=== PATIENT | male | born 1955 | race Caucasian/White ===

== ENCOUNTER 2016-09-19 11:27 | Inpatient (IN) ==
[~2016-09-19 11:27] MED LIST: *HR* Amiodarone 150 MG/3 ML VIAL IVPB ONE; *HR* Amiodarone Premix 360 MG/200 ML BAG IVC ONE
[2016-09-19] MEDS ORDERED: *HR* FentaNYL (PF) 100 MCG/2 ML VIAL ONE (12:00)
[2016-09-19] MEDS ORDERED: *HR* Midazolam HCl 2 MG/2 ML VIAL ONE (12:00)
[2016-09-19] MEDS ORDERED: 0.9 % Sodium Chloride 1,000 ML ONE (12:01)
[2016-09-19] MEDS ORDERED: 0.9 % Sodium Chloride 1,000 ML IVC ONE (12:15)
[2016-09-19] MEDS ORDERED: Amiodarone 150 MG in D5% in Water 100 ML IVPB ONE (12:20)
--- NOTE | 2016-09-19 12:20 | Emergency Department Note ---
Disposition Clinical Impression: Ventricular tachycardia Disposition: Admitted As Inpatient Condition: Serious Referrals: Lavern Iverson CNP [Primary Care Provider] - Forms: ED Satisfaction Letter Time of Disposition: 12:46 Arrhythmia/Palpitations HPI - General Chief Complaint: ED Arrhythmia/Palpitations Stated Complaint: "dizziness", sent from Cardiology Time Seen by Provider: 09/19/16 11:49 Source: patient Limitations: no limitations Nursing Notes Reviewed: Yes Vital Signs Reviewed: Yes - History of Present Illness HPI Narrative: 61-year-old male with history of coronary disease who currently has a pacemaker and defibrillator 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 Patient was seen to have his pacemaker interrogated and was found per cardiology report to have a run of ventricular fibrillation. He was also noted to have several runs of tachycardia. They decided to send him to the emergency department for evaluation. On arrival the patient is pale, diaphoretic and cyanotic. He was noted to have a wide-complex tachycardia on monitor. EKG confirmed wide-complex tachycardia that appeared to be ventricular tachycardia. The alert team was notified and a crash cart was moved into the room. Pacer pads were applied to the right chest and left chest wall. Initial blood pressure was 124/100. His initial heart rate was 190 bpm. O2 saturation was 92% on room air. Patient was given 5 mg of Versed and 100 g of fentanyl. He was synchronized cardioverted with 125 J which failed. Patient immediately converted back into ventricular tachycardia. The patient's blood pressure then decreased to 63/40. Patient was immediately converted at 150 J and had a sustained sinus rhythm at 74 bpm. Initial blood pressure afterward was 130/88. Repeat EKG ordered. Amiodarone at 150 mg began. After discussion with cardiology, Dr. Arreola, he recommend starting amiodarone drip at 1 mg per hour. The patient is currently recovering from his sedation. Cardiology has already seen and evaluated the patient by Dr. Jagjit Murphy. They have recommended admission to the hospitalist service with cardiology to evaluate once the patient reaches the floor. Pt Subjective Complaint: palpitations Onset (ago): week(s) (1) Duration: constant Severity: moderate Arrhythmia History: atrial fibrillation, pacemaker, AICD Associated symptoms: Reports: near-syncope, diaphoresis - Related Data Allergies Allergy/AdvReac Type Severity Reaction Status Date / Time Penicillins Allergy See Verified 08/03/15 10:01 Comments All systems ED: reviewed and negative except as stated. Constitutional: Denies: fever, chills Cardiovascular: Reports: palpitations. Denies: chest pain Respiratory: Denies: cough, dyspnea, wheezes Gastrointestinal: Denies: abdominal pain, nausea, vomiting Musculoskeletal: Denies: back pain Neurological: Reports: weakness, vertigo. Denies: headache Past Medical History - Past Medical History Medical history: Reports: non-contributory - Social History Smoking Status: Unknown if ever smoked Alcohol use: Reports: unknown Drug use: Reports: unknown Physical Exam - General Limitations: no limitations General appearance: alert, in distress - Head Head exam: atraumatic, normocephalic, normal inspection, other (Diaphoresis) - ENT ENT exam: other (Tobias cyanosis) - Chest Chest inspection: Present: normal inspection, symmetric chest wall rise - Respiratory Respiratory exam: Present: normal lung sounds bilaterally - Cardiovascular Cardiovascular exam: Present: normal rhythm, tachycardia - Abdominal Exam Abdominal exam: Present: soft, Non-Tender. Absent: tenderness, distention, guarding, rebound, rigidity - Neurological Exam Neurological exam: Present: alert, oriented X3, CN II-XII intact - Skin Skin exam: Present: warm, dry, intact, normal color Course - Reevaluation(s) Reevaluation #1: Discussed case with cardiology, Dr. Arreola and Dr. Velasquez. They feel the patient should be admitted by the hospitalist service. They recommended placing the patient on an amnio drip at 1 mg per hour. Patient's blood pressure now is currently 110/57. Heart rate is 68 bpm. O2 saturations 100%. Discussed case with hospitalist service who feels the patient is not suitable for admission to the floor. They recommend discussion with the med asst. Residential Concierge has been paged. Awaiting callback. Time: 12:50 Reevaluation #2: Discussed case with the med asst Dr. Gibbons. He is accepted the patient for further evaluation and treatment. He did recommend replacing potassium. Patient in stable but guarded condition. Time: 13:12 Vital Signs Temperature 98.3 F 09/19/16 11:59 Pulse Rate 203 09/19/16 11:59 Respiratory Rate 18 09/19/16 11:59 Blood Pressure 124/100 09/19/16 11:59 O2 Sat by Pulse Oximetry 97 09/19/16 11:59 Temperature 98.3 F 09/19/16 11:59 Pulse Rate 69 09/19/16 12:45 Respiratory Rate 14 09/19/16 12:45 Blood Pressure 110/57 09/19/16 12:45 O2 Sat by Pulse Oximetry 100 09/19/16 12:45 Oxygen Delivery Oxygen Delivery Non Rebreather Mask Arrhythmia/Palpitations - Medical Records Medical records reviewed: Yes I reviewed the patient's medical records. - Lab Data Lab results reviewed: Yes I reviewed the patient's lab results. Result diagrams: 09/19/16 12:37 09/19/16 12:37 Lab Results 09/19/16 09/19/16 09/19/16 Range/Units 12:37 12:37 12:37 WBC 9.3 (4.3-11.1) K/mcL RBC 4.52 (4.19-5.50) M/mcL Hgb 13.1 (12.9-16.9) g/dL Hct 40.0 (37.5-50.1) % MCV 88.5 (83.0-100.0) fL MCH 29.0 (28.0-33.3) pg MCHC 32.8 (31.6-35.5) g/dL RDW 14.1 (11.5-14.5) % Plt Count 219 (140-400) K/mcL MPV 9.9 (9.4-12.4) fL Immature Gran % 0.2 (0-4) % Seg Neutrophils % 67.9 % Lymphocytes % 21.2 % Monocytes % 9.7 % Eosinophils % 0.6 % Basophils % 0.4 % Neutrophils # 6.3 (1.6-8.9) K/mcL Lymphocytes # 2.0 (0.6-4.6) K/mcL Monocytes # 0.9 (0.0-1.3) K/mcL Eosinophils # 0.1 (0.0-0.6) K/mcL Basophils # 0.0 (0.0-0.2) K/mcL Immature Plt Fraction 2.8 (1.1-6.1) % PT 12.2 H (9.4-12.1) Seconds INR 1.1 Sodium 141 (136-145) mEq/L Potassium 3.2 L (3.5-4.5) mEq/L Chloride 105 (98-109) mEq/L Carbon Dioxide 24 (19-29) mEq/L BUN 17 (8-26) mg/dL Creatinine 1.49 H (0.72-1.25) mg/dL Est GFR ( Amer) 58 L (> 60) Est GFR (Non-Af Amer) 48 L (> 60) BUN/Creatinine Ratio 11 (6-26) Glucose 187 H (70-99) mg/dL Calculated Osmolality 298 (280-300) Calcium 9.1 (8.6-10.8) mg/dL Total Bilirubin 0.5 (0.2-1.2) mg/dL AST 19 (5-34) Units/L ALT 22 (0-55) Units/L Alkaline Phosphatase 76 (38-126) Units/L Troponin I (0-0.03) ng/mL Serum Total Protein 6.4 (6.0-8.3) g/dL Albumin 3.3 L (3.5-5.0) g/dL Globulin 3.1 (2.4-3.5) g/dL Albumin/Globulin Ratio 1.1 (1.1-2.2) 09/19/16 Range/Units 12:37 WBC (4.3-11.1) K/mcL RBC (4.19-5.50) M/mcL Hgb (12.9-16.9) g/dL Hct (37.5-50.1) % MCV (83.0-100.0) fL MCH (28.0-33.3) pg MCHC (31.6-35.5) g/dL RDW (11.5-14.5) % Plt Count (140-400) K/mcL MPV (9.4-12.4) fL Immature Gran % (0-4) % Seg Neutrophils % % Lymphocytes % % Monocytes % % Eosinophils % % Basophils % % Neutrophils # (1.6-8.9) K/mcL Lymphocytes # (0.6-4.6) K/mcL Monocytes # (0.0-1.3) K/mcL Eosinophils # (0.0-0.6) K/mcL Basophils # (0.0-0.2) K/mcL Immature Plt Fraction (1.1-6.1) % PT (9.4-12.1) Seconds INR Sodium (136-145) mEq/L Potassium (3.5-4.5) mEq/L Chloride (98-109) mEq/L Carbon Dioxide (19-29) mEq/L BUN (8-26) mg/dL Creatinine (0.72-1.25) mg/dL Est GFR ( Amer) (> 60) Est GFR (Non-Af Amer) (> 60) BUN/Creatinine Ratio (6-26) Glucose (70-99) mg/dL Calculated Osmolality (280-300) Calcium (8.6-10.8) mg/dL Total Bilirubin (0.2-1.2) mg/dL AST (5-34) Units/L ALT (0-55) Units/L Alkaline Phosphatase (38-126) Units/L Troponin I 0.18 H* (0-0.03) ng/mL Serum Total Protein (6.0-8.3) g/dL Albumin (3.5-5.0) g/dL Globulin (2.4-3.5) g/dL Albumin/Globulin Ratio (1.1-2.2) - Radiology Data Radiology results reviewed: Yes I reviewed the patient's radiology results. - EKG Data EKG attestation: Yes I reviewed and interpreted this EKG. EKG results narrative: Ventricular tachycardia with a rate of 179 bpm Rate: tachycardia When compared to previous EKG there are: changes noted
--- NOTE | 2016-09-19 12:22 | Cardiology Consult Note ---
Addendum entered and electronically signed by Jagjit Murphy DO 09/19/16 13:21: 1st troponin is back and is elevated at 0.18, likely related to his cardioversion. Continue to trend. No acute intervention at this time. Original Note: Date of Encounter: 09/19/16 Time of Encounter: 12:22 Assessment and Plan (1) Ventricular tachycardia Status: Acute - Remote history of inducible V-tach, had ICD placed and started on Sotalol, patient quit taking Sotalol several months ago - At device clinic today and noted to be in V-tach, sent to the ED for further Eval - In ED, patient hemodynamically stable but c/o near syncope x2-3 days and looked unwell - 1st attempt at cardioversion failed, 2nd attempt after Amiodarone bolus converted to NSR - Maintain Amiodarone gtt at 1mg/min for 24 hours - Order complete echocardiogram - Further recommendations pending lab and echo results - Possible stress test vs LHC tomorrow pending results - Continue all symptomatic care - Continue home medications if BP remains stable - Will be admitted to medicine service for other medical care - Further recommendations pending attending evaluation Discussion w patient/family: The assessment and plan as outlined above was discussed with the patient and/or family members who expressed understanding and agreement. All questions were answered. Thank you for involving us in the care of your patient. Please call with any questions. History of Present Illness Consult date: 09/19/16 Requesting physician: Denton Zaidi Consult reason: V-tach Chief complaint: dizziness History of present illness: Mr. Jordan is a 61 year old male who presents to the ED from the pacemaker clinic today. He is a patient of Dr. Velasquez and has been having a 2-3 day history of dizziness. Went to have his pacemaker interrogated today and was found to be having runs of V-tach. Was sent over to the ED for further evaluation. Once in the ED, the patient was found to be in V-tach. He was sedated and attempted cardioversion which was unsuccessful. He was bolused 150mg of Amiodarone and was cardioverted again which was successful. He did have intermittent hypotension but is recovering without other intervention. Upon my evaluation, the patient is still somewhat sedated and isn't able to answer all questions but is able to relay recent history. Reports he has been having episodes of dizziness with near syncope for the past few days. Has never had anything like this before. Denies headache, changes in vision, chest pain, shortness of breath, abd pain, edema. He is unsure of why he has the pacemaker or when it was placed. Does state he has a h/o DM and HTN but denies any other medical problems. Past Med Surg Social Fam HX - Past Medical History Medical history: arthritis, cardiomyopathy (ischemic ), CHF, coronary artery disease, CVA, diabetes, hyperlipidemia, hypertension, seizures, syncope Psychiatric history: anxiety, depression - Social History Smoking Status: Unknown if ever smoked Alcohol use: unknown Drug use: unknown Medications and Allergies Allergies Penicillins Allergy (Verified 08/03/15 10:01) See Comments does not recall reaction ROS unobtainable: other (somewhat limited since patient was recently sedated, does appear able to answer questions as expected) All Systems Review: A 10-system review of systems was performed and is negative for pertinent findings except as documented above in the HPI. - Constitutional Constitutional: fatigue, malaise, no headache(s), no weakness - EENT Eyes: no blurred vision - Cardiovascular Cardiovascular: lightheadedness, syncope (near ), no chest pain at rest, no chest pain with exertion, no diaphoresis, no dyspnea on exertion, no irregular heart rhythm, no leg edema, no palpitations - Respiratory Respiratory: no cough - Gastrointestinal Gastrointestinal: no abdominal pain, no diarrhea, no nausea - Musculoskeletal Musculoskeletal: no abnormal gait, no back pain - Integumentary Integumentary: no rash - Neurological Neurological: dizziness, syncope (near ), no abnormal speech, no focal weakness , no loss of vision, no numbness, no tingling Physical Examination Vital Signs, Last 4 Hours Temp Pulse Resp BP Pulse Ox 09/19/16 11:59 98.3 F 203 18 124/100 97 General: Conversant, No Apparent Distress (but is coming out of sedation ) HEENT: Atraumatic, Normocephaly, Mucus Membranes Moist Neck: No JVD, Normal carotid pulses Cardiac: Reg Rate and Rhythm, Normal S1 and S2, No Murmur Lungs: Normal Breath Sounds, No Wheeze, Rales, Rhonchi Neuro: Alert and responsive, No focal deficits noted, Other (slightly sedated, appropriate ) Abdomen: Soft, Non-Tender, Other (obese) Skin: No rashes noted on visualized skin Musculoskeletal: No Chest Wall Tenderness Extremities: No Clubbing, No Cyanosis, No Edema, Normal Pulses Results - Imaging and Cardiology Chest Xray: pending Consult Discharge Plan - Plan Referrals: Lavern Iverson CNP [Primary Care Provider] -
[2016-09-19] MEDS ORDERED: *HR* Midazolam HCl 5 MG/5 ML VIAL IVP ONE (12:29)
[2016-09-19] MEDS ORDERED: *HR* FentaNYL (PF) 100 MCG/2 ML VIAL IV ONE (12:29)
[2016-09-19] MEDS ORDERED: D5 IVPB SCH (12:30)
[2016-09-19] MEDS ORDERED: AMIODARONE IVPB SCH (12:30)
[2016-09-19] MEDS ORDERED: WATER IVPB SCH (12:30)
--- NOTE | 2016-09-19 12:36 | Emergency Department Note ---
START Narrative - START START: I examined this patient and my medical decision-making was reviewed with the INFORMATION TECHNOLOGY ANALYST/PA/Advanced Practice Nurse/Resident Physician. I agree with the documented findings, disposition and treatment plan as described except to the extent set forth below. ED attending note: Patient seen with emergency medicine resident Dr. Zaidi. We independently evaluated the patient. We independently had [id number] contact with the patient. Please see a copy of his note for details of the history and physical, evaluation, management and disposition of this emergency Department patient. Briefly: A 61-year-old male history of V. tach and has an AICD. Sent down from cardiology clinic with ventricular dysrhythmia and a nonfunctional AICD. Patient was shocked 3 times after IV sedation and analgesics were given. And we broke the ventricular tachycardia and is now sinus rhythm between 60 and 70 bpm. He had a transient hypotensive episode which responded to normal saline. We consulted with cardiology who will see this patient as soon as he is admitted to the hospitalist service. We have provided 55 minutes of critical care services for this patient and exclusion of other separately billable procedures such as electrical cardioversion. Patient be admitted in stable condition
[2016-09-19 12:44] LABS: Basophils % 0.4 %; Eosinophils # 0.1 K/mcL (0.0-0.6); Eosinophils % 0.6 %; Hemoglobin 13.1 g/dL (12.9-16.9); Immature Granulocytes % 0.2 % (0-4); Immature Platelets 2.8 % (1.1-6.1); Lymphocytes % 21.2 %; Mean Corpuscular HGB Conc 32.8 g/dL (31.6-35.5); Mean Corpuscular Volume 88.5 fL (83.0-100.0); Mean Platelet Volume 9.9 fL (9.4-12.4); Monocytes # 0.9 K/mcL (0.0-1.3); Monocytes % 9.7 %; Neutrophils # 6.3 K/mcL (1.6-8.9); Platelet Count 219 K/mcL (140-400); Red Blood Count 4.52 M/mcL (4.19-5.50); Red Cell Distribution Width 14.1 % (11.5-14.5); Segmented Neutrophils % 67.9 %
[2016-09-19] MEDS ORDERED: Amiodarone Premix 150 MG/100 ML BAG IVPB ONE (12:45)
[2016-09-19 12:49] LABS: INR 1.1; Prothrombin Time 12.2 Seconds (9.4-12.1)
[2016-09-19 12:58] LABS: Albumin 3.3 g/dL (3.5-5.0); Albumin/Globulin Ratio 1.1 (1.1-2.2); Bilirubin,Total 0.5 mg/dL (0.2-1.2); Calcium 9.1 mg/dL (8.6-10.8); Globulin 3.1 g/dL (2.4-3.5); Potassium 3.2 mEq/L (3.5-4.5); Total Protein 6.4 g/dL (6.0-8.3)
[2016-09-19] MEDS: Amiodarone Premix 360 MG/200 ML BAG IVC ONE ×3 (12:59→23:44)
[2016-09-19] MEDS ORDERED: *HR* Midazolam HCl 2 MG/2 ML VIAL IVP ONE (13:00)
[2016-09-19] MEDS ORDERED: Aspirin 325 MG TABLET PO ONE (13:11)
[2016-09-19 14:05] LABS: Magnesium 1.5 mg/dL (1.6-2.6)
--- NOTE | 2016-09-19 14:09 | Pulmonology History & Physical ---
Date of Encounter: 09/19/16 Time of Encounter: 14:00 Assessment and Plan (1) Ventricular tachycardia Current visit: Yes Status: Acute Pt seen in cardiology office for interrogation of pacemaker at which time runs of vfib were found along with ventricular tachycardia and he was sent to ED Found to be in V-tach in ED, was cardioverted at 125J which failed, then cardioverted at 150J with a bolus of Amiodarone and converted at that time Amiodarone at 1mg/min started Will follow cardiology recommendations Plan for Echocardiogram Possible stress test vs LHC tomorrow pending results Continue to monitor on telemetry CXR demonstrated mild cardiomegaly, otherwise no acute cardiopulmonary process (2) Diabetes mellitus Current visit: Yes Status: Acute Will hold oral medications and start SSI for hospital stay Continue to monitor glucose and make adjustments as needed Qualifiers: Diabetes mellitus type: type 2 Diabetes mellitus complication status: with unspecified complications Diabetes mellitus extermination inspector insulin use: without group home use Qualified Code(s): E11.8 - Type 2 diabetes mellitus with unspecified complications (3) DVT prophylaxis Current visit: Yes Status: Acute Therapeutic Lovenox ordered per cardiology History of Present Illness Chief complaint: Palpitations HPI: Mr. Jordan is a 61 year old male with history of coronary artery disease who has a pacemaker and defibrillator in place who presents to ED after being seen at the cardiology office. He had his pacemaker interrogated and he was sent to the ED after seeing runs of vtach on his pacemaker. He also has had symptoms of dizziness, weakness and near syncope over the past 2-3 days. He reports feeling as though he had to breath deeply in order to catch his breath and make his heart slow down. On arrival to the ED, pt was diaphoretic and felt nauseous. He was noted to have wide-complex tachycardia on monitor which was confirmed on EKG. At that time, synchronized cardioversion was performed at 125J and failed. He was then cardioverted at 150J and given Amiodarone at which time he converted to sinus rhythm. Amiodarone drip was started at 1mg/hr per cardiology. At time of interview, pt reports he is feeling much better than when he arrived. He states that he is no longer feeling dizzy or weak and the nausea has resolved. He denies having any chest pain, abdominal pain, or shortness of breath at this time. Past Med Surg Social Fam HX - Past Medical History Medical history: non-contributory Psychiatric history: anxiety, depression - Social History Smoking Status: Unknown if ever smoked Alcohol use: unknown Drug use: unknown Medications and Allergies Albuterol Sulfate [Proair Hfa] 2 puff IH Q4H PRN 09/19/16 [History] Atorvastatin [Lipitor] 40 mg PO HS 09/19/16 [History] Beclomethasone Diprop 80mcg [QVAR 80 mcg] 1 puff IH BID 09/19/16 [History] ClonazePAM [Klonopin] 1 mg PO TID PRN 09/19/16 [History] Clopidogrel [Plavix] 75 mg PO DAILY 09/19/16 [History] Ezetimibe [Zetia] 10 mg PO DAILY 09/19/16 [History] Furosemide [Lasix] 20 mg PO DAILY 09/19/16 [History] Gabapentin [Gabapentin] 800 mg PO TID 09/19/16 [History] Lamotrigine [Lamotrigine] 100 mg PO BID 09/19/16 [History] Metformin [Glucophage] 250 - 500 mg PO DAILY 09/19/16 [History] Multivitamin,Therapeutic [Therems] 1 tab PO DAILY 09/19/16 [History] Oxycodone HCl [Roxicodone 30 MG Immed Release] 30 mg PO Q4-6H PRN 09/19/16 [ History] Sertraline [Zoloft] 100 mg PO DAILY 09/19/16 [History] Allergies Penicillins Allergy (Verified 09/19/16 13:16) See Comments does not recall reaction All Systems: A 10-system review of systems was performed and is negative for pertinent findings except as documented above in the HPI. - Constitutional Constitutional: no chills, no fever(s) - EENT Eyes: no loss of vision Nose, mouth and throat: dizziness, no headache(s), no hoarseness - Cardiovascular Cardiovascular: palpitations, no chest pain, no orthopnea - Respiratory Respiratory: no cough, no dyspnea, no wheezing - Gastrointestinal Gastrointestinal: nausea, no abdominal pain, no vomiting - Genitourinary Genitourinary: no dysuria, no urinary urgency - Musculoskeletal Musculoskeletal: no back pain, no neck pain - Neurological Neurological: dizziness, weakness, no headache(s) Physical Examination Vital Signs: Vital Signs, Last 4 Hours Resp BP 09/19/16 13:51 16 104/63 General appearance: no acute distress Eyes: nonicteric ENT: oropharynx moist Neck: supple Effort: normal Auscultation: bilateral: clear Cardiovascular: regular rate and rhythm Gastrointestinal: normoactive bowel sounds, non-tender, non-distended Integumentary: normal Extremities: no cyanosis, no edema, no clubbing Musculoskeletal: no deformities normal mental status, non-focal exam mood appropriate, affect normal Results - Laboratory Findings CBC and BMP: 09/19/16 12:37 09/19/16 12:37 PT/INR, D-dimer PT 12.2 Seconds (9.4-12.1) H 09/19/16 12:37 Abnormal lab findings: Abnormal lab results PT 12.2 Seconds (9.4-12.1) H 09/19/16 12:37 Potassium 3.2 mEq/L (3.5-4.5) L 09/19/16 12:37 Creatinine 1.49 mg/dL (0.72-1.25) H 09/19/16 12:37 Est GFR ( Amer) 58 (> 60) L 09/19/16 12:37 Est GFR (Non-Af Amer) 48 (> 60) L 09/19/16 12:37 Glucose 187 mg/dL (70-99) H 09/19/16 12:37 Troponin I 0.18 ng/mL (0-0.03) H* 09/19/16 12:37 Albumin 3.3 g/dL (3.5-5.0) L 09/19/16 12:37
[2016-09-19] MEDS ORDERED: Naloxone 0.4 MG/ML INJ IVP PRN (14:20)
[2016-09-19] MEDS ORDERED: Acetaminophen 325 MG TABLET PO PRN ×2 (14:20→14:29)
[2016-09-19] MEDS ORDERED: Ondansetron 4 MG/2 ML VIAL IVP PRN (14:20)
[2016-09-19] MEDS ORDERED: D5% in Water 1,000 ML IV PRN (14:24)
[2016-09-19] MEDS ORDERED: Dextrose Gel 15 GM PO PRN ×2 (14:24)
[2016-09-19] MEDS ORDERED: *HR* Dextrose 50 % in Water (Syg) 50 ML SYRINGE IVP PRN (14:24)
[2016-09-19 14:32] LABS: Thyroid Stimulating Hormone 4.808 mcIU/mL (0.350-4.840)
[2016-09-19] MEDS: Magnesium Sulfate 2 GM in D5% in Water 100 ML IVPB SCH ×3 (15:24→16:44)
[2016-09-19] MEDS: Insulin LISPRO 300 UNITS/3 ML VIAL SQ SCH (16:36)
[2016-09-19] MEDS: *HR* Enoxaparin 120 MG/0.8 ML SYRINGE SQ SCH (17:04)
--- NOTE | 2016-09-19 17:17 | Event Note ---
Date of Encounter: 09/19/16 Time of Encounter: 17:15 Patient examined, chart and all data reviewed as well as imaging studies. I reviewed the patient's evaluation physical examination findings as outlined by the house staff. Patient was admitted through the emergency room to the intensive care unit following cardioversion from wide complex tachycardia presumably reflective of ventricular tachycardia. Currently, the patient remains in a sinus rhythm with an amiodarone infusion. Of note, electrolyte determination revealed hypokalemia hypomagnesemia also which are currently being corrected with intravenous replacement therapy. The patient has substantial risk factors for sleep apnea and apparently has been offered BiPAP treatment in the past but has declined. Cardiology is currently evaluating the patient. Aside from continuing therapy with amiodarone, the patient may undergo an ischemia evaluation (likely left heart catheterization). The patient has an uneventful evening, he may be transitioned out of the intensive care unit tomorrow. [facility] [phone]
[2016-09-19] MEDS ORDERED: Perflutren Lipid Microsphere 1.3 ML in 0.9 % Sodium Chloride 8.7 ML IVP ONE (21:09)
[2016-09-19] MEDS ORDERED: Amiodarone Premix 360 MG/200 ML BAG IVC ONE (23:41)
[2016-09-20 01:40] LABS: Ionized Calcium 1.12 mmol/L (1.15-1.35)
[2016-09-20 01:49] LABS: Magnesium 2.2 mg/dL (1.6-2.6); Phosphorous 4.7 mg/dL (2.3-4.7)
[2016-09-20 01:50] LABS: Calcium 8.9 mg/dL (8.6-10.8); Potassium 3.9 mEq/L (3.5-4.5)
[2016-09-20] MEDS: *HR* Enoxaparin 120 MG/0.8 ML SYRINGE SQ SCH (06:23)
[2016-09-20] MEDS ORDERED: Amiodarone Premix 360 MG/200 ML BAG IVC ONE (06:23)
[2016-09-20] MEDS: Amiodarone Premix 360 MG/200 ML BAG IVC ONE (06:59)
--- NOTE | 2016-09-20 07:10 | Pulmonology Progress Note ---
Date of Encounter: 09/20/16 Time of Encounter: 06:35 Assessment and Plan (1) Ventricular tachycardia Current Visit: Yes Status: Acute Pt seen in cardiology office for interrogation of pacemaker at which time runs of vfib were found along with ventricular tachycardia and he was sent to ED Found to be in V-tach in ED, was cardioverted at 125J which failed, then cardioverted at 150J with a bolus of Amiodarone and converted at that time Amiodarone 1mg/min started, consider transitioning to po today per cardiology Echocardiogram demonstrated EF of 25% NPO at midnight Plan is for [facility] tomorrow Continue to monitor on telemetry CXR demonstrated mild cardiomegaly, otherwise no acute cardiopulmonary process (2) Diabetes mellitus Current Visit: Yes Status: Acute Will hold oral medications and start SSI for hospital stay Continue to monitor glucose and make adjustments as needed Qualifiers: Qualified Code(s): E11.8 - Type 2 diabetes mellitus with unspecified complications (3) DVT prophylaxis Current Visit: Yes Status: Acute Therapeutic Lovenox ordered per cardiology Subjective Principal diagnosis: VTach Interval history: Pt reports he is feeling better today. He has been up out of bed. Tolerating po diet. Denies any chest pain, shortness of breath, nausea, vomiting, palpitation, or dizziness at this time. Objective PUL Vital signs: Last Vital Signs Temp 97.8 F 09/20/16 05:00 Pulse 64 09/20/16 07:00 Resp 20 09/20/16 07:00 BP 144/116 09/20/16 07:00 Pulse Ox 99 09/20/16 07:00 General appearance: no acute distress Eyes: nonicteric ENT: oropharynx moist Neck: supple Effort: normal Auscultation: bilateral: clear Cardiovascular: regular rate and rhythm Gastrointestinal: normoactive bowel sounds, soft, non-tender, non-distended Integumentary: normal Extremities: no cyanosis, no clubbing, edema Musculoskeletal: no deformities normal mental status, non-focal exam mood appropriate, affect normal Results - Laboratory Findings CBC and BMP: 09/19/16 12:37 09/20/16 00:47 PT/INR, D-dimer PT 12.2 Seconds (9.4-12.1) H 09/19/16 12:37 Abnormal lab findings: Abnormal lab results PT 12.2 Seconds (9.4-12.1) H 09/19/16 12:37 Creatinine 1.62 mg/dL (0.72-1.25) H 09/20/16 00:47 Est GFR ( Amer) 52 (> 60) L 09/20/16 00:47 Est GFR (Non-Af Amer) 43 (> 60) L 09/20/16 00:47 Glucose 158 mg/dL (70-99) H 09/20/16 00:47 POC Glucose 190 (58-89) H 09/19/16 19:52 Ionized Calcium 1.12 mmol/L (1.15-1.35) L 09/20/16 00:47 Troponin I 0.22 ng/mL (0-0.03) H* 09/20/16 00:47 Albumin 3.3 g/dL (3.5-5.0) L 09/19/16 12:37 - Clinical Findings Intake & Output: Intake & Output 09/19/16 09/19/16 09/20/16 15:59 23:59 07:59 Intake Total 1000 / 1103 1708 / 1708 200 / 200 Output Total 150 / 150 150 / 150 Balance 1000 / 1103 1558 / 1558 50 / 50 Weight 133.4 kg 135.806 kg Consult Discharge Plan - Plan Referrals: Lavern Iverson, [employer] [Primary Care Provider] -
[2016-09-20] MEDS: Insulin LISPRO 300 UNITS/3 ML VIAL SQ SCH ×3 (07:20→16:32)
--- NOTE | 2016-09-20 08:49 | Event Note ---
Date of Encounter: 09/20/16 Time of Encounter: 08:46 Mr. Jordan overnight reportedly experienced no significant medical issues and specifically did not no recurrence of ventricular tachycardia necessitating intervention. He remains on amiodarone drip, I have reviewed Dr. Arreola's note and the recommendation is to proceed with enteral amiodarone administration. If the cardiology service is not seeding with any additional evaluations regarding ischemia or additional management of arrhythmia, the patient may be discharged from the hospital later today. Given elevation of blood pressure, Norvasc will be added as outlined by the house staff's note. The patient's management was reviewed in detail with the house staff and nursing staff. The chart was reviewed in detail a physical examination was performed and all laboratory data were also reviewed. [facility] [phone]
[2016-09-20] MEDS ORDERED: amLODIPine 5 MG TABLET PO SCH (09:00)
--- NOTE | 2016-09-20 09:43 | ECHO - Doppler Report ---
Echo with Imaging Enhancement Agent Name: Oniel Jordan Date of Study: 09/19/2016 Date: 1955 Ht: 74.0 in Medical Record#: [id number] Age: 61 Wt: 294.0 lb Gender: Male BSA: 2.56 Order #: [id number] Location: [facility] Room #: IC9 Reading Physician: Aliyah Velasquez DO Pick Up And Delivery Driver: Miryam Grant RDCS Ordering Physician: Jagjit Murphy DO Primary Physician: Lavern Iverson CNP Indications: Ventricular Tachycardia Impressions: LVEF 25%. Severe global LV systolic dysfunction. Left ventricle is moderately dilated. There is evidence of moderate diastolic dysfunction of the left ventricle. Normal right ventricular size and function. No significant valvular dysfunction. No pulmonary hypertension. Left Ventricular Wall Motion: Rest Echo Findings The apex, apical inferior, mid inferior, basal inferior, apical anterior, mid anterior, basal anterior, apical septal, mid inferior septal, basal inferior septal, apical lateral, mid anterior lateral, basal anterior lateral, mid anterior septal, mid inferior lateral, basal anterior septal and basal inferior lateral cox were hypokinetic. Findings: Study Quality * Technically sub-optimal due to poor echocardiographic windows. ECG Findings * Normal sinus rhythm. Aortic Valve * No aortic regurgitation. * Aortic valve not well visualized. * No aortic stenosis. Mitral Valve * Normal mitral valve structure. * No mitral stenosis. * Trace mitral regurgitation. Left Ventricle * Moderately dilated left ventricle. * Moderate left ventricular diastolic dysfunction. * LVEF 25%. * There is no LV thrombus. * Definity echo contrast was used. Tricuspid Valve * Tricuspid valve not well visualized. * No tricuspid regurgitation. * Estimated RA pressure is 3 mmHg. Pulmonic Valve * Pulmonic valve is not well visualized. * No pulmonic stenosis. * No pulmonic regurgitation. Pulmonary Artery * Pulmonary artery not well visualized. Right Atrium * Normal right atrial size. Right Ventricle * Normal right ventricular structure and function. Left Atrium * Mildly dilated left atrium. Interatrial Septum * No evidence of PFO by color Doppler. IVC * The IVC is not dilated. Pericardium * There is no pericardial effusion present. Aorta * Normally sized aortic root. Device lead * A device lead was visualized in the right atrium and right ventricle. History Hypertension Diabetes Hypercholesteremia History of CAD/PTCA Myocardial Infarction Congestive Heart Failure Pacer/ICD Implant 07/19/2016 a Previous Echo was performed. Contrast: Definity 1.3 ml in 8.7 ml of saline 4 ml. Measurements: BP: 104/ 63 2D Normal Values IVSd: .95 cm 0.6 - 1.0 cm LVIDd: 7.00 cm 3.7 - 5.6 cm LVPWd: 1.07 cm 0.6 - 1.1 cm LVIDs: 4.53 cm 1.5 - 3.6 cm AO: 2.60 cm < 4.0 cm LA: 4.30 cm 2.0 - 4.0cm %FS: 42.90 cm >25 % LA volume: 97 Mitral Valve Peak E:1.12 m/sec Peak A:.91 m/sec E/A Ratio:1.2 Peak E' Lat Shan:6.57 cm/s Peak E' Med Shan:5.07 cm/s E/E' Lat Ratio:17 E/E' Med Ratio:22.1 Tricuspid Valve TV Regurg Peak Grad: 11.00mmHg TV Regurg Peak Shan: 1.67m/sec Updated by Aliyah Velasquez on 09/20/2016 9:37:12 AM electronically signed on 09/20/2016 9:38:22 AM with status of Final Wall Motion Patel: 1=Normal, 2=Hypokinesis, 3=Akinesis, 4=Dyskinesis, 5=Aneurysmal, 6=Hyperkinetic, X=Not Visualized (Blank)=Missing
[2016-09-20] MEDS ORDERED: Nitroglycerin 1,000 MCG/10 ML VIAL IV ONE (10:46)
[2016-09-20] MEDS ORDERED: Heparin 1,000 UNITS/500 mL NS 0 ML ONE (10:46)
[2016-09-20] MEDS ORDERED: *HR* Heparin 10,000 UNIT/10 ML VIAL ONE (10:46)
--- NOTE | 2016-09-20 10:55 | Event Note ---
Date of Encounter: 09/20/16 Time of Encounter: 10:52 - Cardiology Event Note Echo resulted--EF previously 45-50%, has now declined to 20%. Recommend LHC for further ischemic evaluation. Based on LHC 11 years ago, it is likely that pt will need CABG. R/B/A discussed with pt. He verbalizes understanding and is agreeable to proceed with LHC today. Had breakfast, will plan for LHC this afternoon. Will hold off on oral anticoagulation for his PAF until after ischemic eval is completed. Transition to PO amiodarone--400mg BID. Will need decreased dose prior to discharge. Continue to follow.
--- NOTE | 2016-09-20 11:09 | Cardiology Progress Note ---
Date of Encounter: 09/20/16 Time of Encounter: 11:06 Assessment and Plan (1) Cardiomyopathy Current Visit: Yes Status: Acute Previously EF was 45-50% in 2013. Echo yesterday shows EF has declined to 25%-- global hypokinesis. Euvolemic on exam. Presumed ischemic cardiomyopathy based on [facility] report from 2005. At that time, he had severe 3 vessel CAD--had PCI to mid RCA at that time. Plan for [facility] once renal function improves. R/B/A discussed and pt agreeable. Resume low dose BB. No DYLON-I currently due to renal dysfunction. ICD already in place. Qualifiers: Cardiomyopathy type: ischemic Qualified Code(s): I25.5 - Ischemic cardiomyopathy (2) Ventricular tachycardia Current Visit: Yes Status: Acute Patient has known history of ventricular tachycardia s/p ICD. He was previously on sotalol, but decided to stop taking it several months ago. His ECG in the ED (pre-cardioversion) is consistent with Afib with RVR with aberrant conduction. ICD interrogation also shows pAfib. Pt has been IV loaded with amiodarone gtt and will switch to PO amiodarone today --400mg BID. This will need decreased on discharge. Pt maintaining SR--no evidence on tele of VT. Correct K to > 4.0 and Mg to > 2.0. Echo EF decreased to 25% (previously 45-50%). [facility] once renal function improves. Continue to monitor on telemetry. TSH normal. (3) Paroxysmal atrial fibrillation Current Visit: Yes Status: Acute On Amio gtt. Pt now maintaining SR. Will transition to PO Amiodarone 400mg BID. Dose will need decreased on discharge. Regarding anticoagulation, heparin gtt until after ischemic eval and plan is determined. (4) CAD (coronary artery disease) Current Visit: Yes Status: Chronic Severe 3 vessel CAD on [facility] in 2005. PCI to mid RCA at that time. Start ASA, Statin, BB. Will not resume Plavix at this time given likelihood of needing CABG. Qualifiers: Coronary Disease-Associated Artery/Lesion type: [place] artery [place] vs. transplanted heart: [place] heart Associated angina: without angina Qualified Code(s): I25.10 - Atherosclerotic heart disease of [place] coronary artery without angina pectoris (5) IVET (acute kidney injury) Current Visit: Yes Status: Acute Renal function previously normal, creatinine 1.08 06/2016. Creatinine on admission 1.49, worsened to 1.62 today--possibly related to hypotension on admission. Was on Lisinopril and Lasix at home. These have not been resumed as inpt. Will avoid nephrotoxic drugs. Nephrology consulted. Input appreciated. (6) Elevated troponin Current Visit: Yes Status: Acute 0.18, 0.25, 0.22 flat and adynamic s/p defibrillation in ED. Nondiagnostic for ACS, but pt is on heparin gtt for PAF, ASA, Statin, BB. No Plavix due to likelihood of needing CABG. LHC once renal function improves for new CMP EF 25%. (7) Essential hypertension Current Visit: Yes Status: Acute BP 140s/100s currently. On Norvasc. Add back BB. PRN Hydralazine. Discussion w patient/family: The assessment and plan as outlined above was discussed with the patient and/or family members who expressed understanding and agreement. All questions were answered. Thank you for involving us in the care of your patient. Please call with any questions. I will discuss all the above with Dr. Arreola and make changes as necessary. Subjective Principal diagnosis: VTach Interval history: Echo resulted--EF has declined from 45-50% to 25%. Denies any complaints overnight. Renal function has worsened from 1.49 to 1.62. Troponins 0.18, 0.25, 0.22. On amio gtt. Maintaining SR. Objective Vital Signs, Last 4 Hours Pulse Resp BP Pulse Ox 09/20/16 10:00 66 18 148/101 95 09/20/16 09:00 70 16 155/95 98 09/20/16 08:00 68 16 162/100 100 09/20/16 07:15 64 Vital Signs Temp Pulse Resp BP Pulse Ox 09/20/16 10:00 66 18 148/101 95 09/20/16 09:00 70 16 155/95 98 09/20/16 08:00 68 16 162/100 100 09/20/16 07:15 64 09/20/16 07:00 64 20 144/116 99 09/20/16 06:00 59 14 151/96 97 09/20/16 05:00 97.8 F 59 12 149/89 96 09/20/16 04:52 97.8 F 09/20/16 04:00 59 13 146/93 96 09/20/16 03:00 59 16 144/95 95 09/20/16 02:00 59 16 145/93 95 09/20/16 01:00 97.3 F L 64 16 151/103 95 09/20/16 00:50 97.3 F L 09/20/16 00:00 69 13 119/74 95 09/19/16 23:00 65 15 144/98 96 09/19/16 22:00 67 16 137/86 98 09/19/16 21:00 64 20 147/89 96 09/19/16 20:00 97.3 F L 67 20 150/84 98 09/19/16 19:00 59 14 130/82 98 09/19/16 18:00 66 20 143/93 96 09/19/16 17:00 64 12 125/67 97 09/19/16 16:00 97.4 F L 64 16 130/80 98 09/19/16 15:00 64 14 118/90 97 09/19/16 14:39 62 09/19/16 13:51 16 104/63 09/19/16 13:15 60 18 89/58 100 09/19/16 12:45 69 14 110/57 100 09/19/16 12:40 70 16 92/57 100 09/19/16 12:30 74 14 78/44 100 09/19/16 12:25 74 14 79/45 100 09/19/16 12:20 71 16 103/73 99 09/19/16 12:15 78 16 121/88 99 09/19/16 11:59 98.3 F 203 18 124/100 97 Intake and Output 09/19/16 09/20/16 09/20/16 23:59 07:59 15:59 Intake Total 1708 / 1708 200 / 200 600 / 600 Output Total 150 / 150 1150 / 1150 Balance 1558 / 1558 -950 / -950 600 / 600 Intake: IV Fluids 608 / 608 200 / 200 Amiodarone 360mg/200mL 400 / 400 Drip Premix 360 mg In 200 ml @ 1 MG/MIN 33.333 mls /hr IVC ONCE ONE Rx#: [id number] Magnesium Sulfate 2 GM In 208 / 208 Dextrose 5% 100 ML @ 96. 296 mls/hr IVPB Q1H DIANE Rx#:[id number] Oral 1100 / 1100 600 / 600 Output: Urine 150 / 150 1000 / 1000 Catheter 150 / 150 Other: Meal gold fish Breakfast Percent of Meal Consumed 100% 100% Weight 135.806 kg Blood Glucose* 190 Patient Weight 09/20/16 23:59 Weight 135.806 kg General: Conversant, No Apparent Distress HEENT: Atraumatic, Normocephaly, Mucus Membranes Moist Neck: No JVD, Normal carotid pulses Cardiac: Reg Rate and Rhythm, Normal S1 and S2, No Murmur Lungs: Normal Breath Sounds, No Wheeze, Rales, Rhonchi Neuro: Alert and responsive, No focal deficits noted Abdomen: Soft, Non-Tender Skin: No rashes noted on visualized skin Musculoskeletal: No Chest Wall Tenderness Extremities: No Clubbing, No Cyanosis, No Edema, Normal Pulses Results 09/19/16 12:37 09/20/16 00:47 Lab Results 09/19/16 09/20/16 09/20/16 18:29 00:47 00:47 Sodium 137 Potassium 3.9 Chloride 103 Carbon Dioxide 21 BUN 22 Creatinine 1.62 H Glucose 158 H Calcium 8.9 Magnesium Troponin I 0.25 H* 0.22 H* 09/20/16 00:47 Sodium Potassium Chloride Carbon Dioxide BUN Creatinine Glucose Calcium Magnesium 2.2 Troponin I Impressions Chest X-Ray 09/19/16 12:15 IMPRESSION: Mild cardiomegaly. Otherwise, no acute cardiopulmonary process. D/ / 09/19/2016 12:46:22 Julio Cesar Hoover MD / earnold Interpreting Provider: Julio Cesar Hoover MD Active Medications Acetaminophen (Tylenol) 650 mg PO Q6HR PRN PRN Reason: FEVER/PAIN Stop: 03/21/17 14:21 Last Admin: 09/19/16 20:11 Dose: 650 mg Amlodipine Besylate (Norvasc) 5 mg PO DAILY DIANE PRN Reason: Protocol Stop: 03/22/17 09:01 Last Admin: 09/20/16 08:20 Dose: 5 mg Dextrose/Water (Dextrose 50% (Syg)) 25 ml IVP AD PRN PRN Reason: Hypoglycemia Stop: 03/21/17 14:25 Enoxaparin Sodium (Lovenox) 120 mg 1 mg/kg (120 mg) SQ Q12HR DIANE PRN Reason: Protocol Stop: 03/21/17 18:01 Last Admin: 09/20/16 06:23 Dose: 120 mg Glucagon (Glucagen) 1 mg IM ONCE PRN PRN Reason: Hypoglycemia Stop: 03/21/17 14:25 Glucose (Gluctose) 15 gm PO ONCE PRN PRN Reason: Hypoglycemia Stop: 03/21/17 14:25 Glucose (Gluctose) 30 gm PO ONCE PRN PRN Reason: Hypoglycemia Stop: 03/21/17 14:25 Dextrose (Dextrose 5%) 1,000 mls @ 100 mls/hr IV CONT PRN PRN Reason: HYPOGLYCEMIA Stop: 03/21/17 14:25 Insulin Human Lispro (Humalog) 0 units SQ TIDAC DIANE PRN Reason: Protocol Stop: 03/21/17 16:31 Last Admin: 09/20/16 07:20 Dose: 2 units Naloxone HCl (Narcan) 0.4 mg IVP Q2MIN PRN PRN Reason: Opioid Reversal Stop: 03/21/17 14:21 Ondansetron HCl (Zofran) 4 mg IVP Q6HR PRN; Protocol PRN Reason: Nausea And Vomiting Stop: 03/21/17 14:21 - Imaging and Cardiology Echo: report reviewed Consult Discharge Plan - Plan Referrals: Lavern Iverson, SLIDE ATTENDANT [Primary Care Provider] -
[2016-09-20] MEDS ORDERED: amLODIPine 5 MG TABLET PO ONE (11:15)
[2016-09-20] MEDS ORDERED: *HR* Heparin 5,000 UNIT/ML VIAL IVP ONE ×2 (11:16→11:55)
[2016-09-20] MEDS ORDERED: *HR* Heparin 5,000 UNIT/ML VIAL IVP PRN ×4 (11:16→11:55)
[2016-09-20] MEDS ORDERED: Heparin 25,000 UNIT/500 ML D5W 25,000 UNIT/500 ML MLS IVC SCH (11:30)
[2016-09-20] MEDS ORDERED: *HR* Amiodarone 200 MG TABLET PO SCH (11:30)
--- NOTE | 2016-09-20 11:37 | Electrocardiograph Report ---
[facility] Test Date: 2016-09-19 Pat Name: Oniel Jordan Department: 103 Room: 09 Gender: M Certified Nurse: TONNY : 1955 Requested By: Denton Zaidi Order Number: [id number] Reading MD: Aliyah Velasquez Measurements Intervals [place] Rate: 73 P: 29 [place]: 164 QRS: 54 QRSD: 178 T: -66 QT: 459 QTc: 485 Interpretive Statements SINUS RHYTHM RIGHT BUNDLE BRANCH BLOCK NONSPECIFIC ST ABNORMALITY Electronically Signed On 09-20-16 11:36:12 EST by Aliyah Velasquez
--- NOTE | 2016-09-20 11:43 | Electrocardiograph Report ---
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
[2016-09-20] MEDS ORDERED: Dextrose Gel 15 GM PO PRN ×2 (11:55)
[2016-09-20] MEDS ORDERED: Naloxone 0.4 MG/ML INJ IVP PRN (11:55)
[2016-09-20] MEDS ORDERED: D5% in Water 1,000 ML IV PRN (11:55)
[2016-09-20] MEDS ORDERED: Ondansetron 4 MG/2 ML VIAL IVP PRN (11:55)
[2016-09-20] MEDS ORDERED: Acetaminophen 325 MG TABLET PO PRN (11:55)
[2016-09-20] MEDS ORDERED: *HR* Dextrose 50 % in Water (Syg) 50 ML SYRINGE IVP PRN (11:55)
[2016-09-20] MEDS ORDERED: Aspirin 81 MG TAB.CHEW PO SCH (12:00)
[2016-09-20] MEDS: Aspirin 81 MG TAB.CHEW PO SCH (12:49)
[2016-09-20 12:57] LABS: INR 1.1; Prothrombin Time 11.6 Seconds (9.4-12.1)
[2016-09-20 12:59] LABS: Activated Partial Thrombo Time 31.3 Seconds (26.0-36.0)
[2016-09-20] MEDS: Heparin 25,000 UNIT/500 ML D5W 25,000 UNIT/500 ML MLS IVC SCH (13:08)
[2016-09-20 13:13] LABS: Hematocrit 38.7 % (37.5-50.1); Hemoglobin 12.6 g/dL (12.9-16.9); Mean Corpuscular HGB Conc 32.6 g/dL (31.6-35.5); Mean Corpuscular Hemoglobin 28.9 pg (28.0-33.3); Mean Corpuscular Volume 88.8 fL (83.0-100.0); Mean Platelet Volume 10.4 fL (9.4-12.4); Platelet Count 207 K/mcL (140-400); Red Blood Count 4.36 M/mcL (4.19-5.50)
--- NOTE | 2016-09-20 13:30 | Nephrology Consult Note ---
Date of Encounter: 09/20/16 Time of Encounter: 13:28 Assessment and Plan (1) IVET (acute kidney injury) Current Visit: Yes Status: Acute Patient's acute kidney injury which is nonoliguric. This occurred in the setting of hypotension related to cardiac arrhythmia. Patient's been diagnosed with A. fib with RVR with a bare conduction. He also has a history of V. tach and previously had been on sotalol. I suspect that with normalization of the patient's cardiac rhythm and stabilization of his blood pressure his renal function should improve. He is going to require cardiac catheterization because of a newly discovered decreased his ventricular ejection fraction. I would give the patient 24-48 hours and hopefully we will see some improvement in his renal function and he can then safely undergo cardiac catheterization. Prior to the catheter I would recommend IV hydration. (2) Cardiomyopathy Current Visit: Yes Status: Acute Qualifiers: Cardiomyopathy type: ischemic Qualified Code(s): I25.5 - Ischemic cardiomyopathy (3) Paroxysmal atrial fibrillation Current Visit: Yes Status: Acute (4) Ventricular tachycardia Current Visit: Yes Status: Acute History of Present Illness - History of Present Illness This is a 61-year-old male who was admitted through the emergency room after visiting his merchant tailor with severe cardiac arrhythmia. Patient has a history of coronary artery disease and ventricular tachycardia. Patient reports she been feeling weak and lightheaded and dizzy over the past 3 days or so. He was seeing his merchant tailor as an outpatient yesterday. He was having his ICD interrogated and was noted to have a very rapid heartbeat and was thought to be in V. tach. Patient was sent to the emergency room. He underwent electrical cardioversion that was initially unsuccessful. It was repeated and he was also placed on amiodarone. In retrospect patient has been diagnosed now with A. fib with RVR with a [place] conduction. Patient has been noted to have low blood pressure recorded at 78/44 in the emergency room yesterday. His creatinine yesterday was 1.49 and today's increased to 1.62. He has had good urine output today. Echocardiogram that showed a decrease in left ventricular ejection fraction from 40-50% down to 25%. Patient has a history of coronary disease and previous stent placement. For these reasons patient is going to need to undergo a cardiac catheter but the acute kidney injury has complicated his course. Baseline creatinine is 1.03-1.08. No previous history of renal disease. He does have a history of diabetes and takes a low dose of metformin. There is no difficulty emptying the bladder. He does not take nonsteroidal anti-inflammatory medications. He denies hematuria proteinuria renal stone disease or recurrent urinary tract infections. Past Med Surg Social Fam HX - Past Medical History Medical history: non-contributory, arthritis, CHF, COPD, coronary artery disease , CVA, diabetes, fibromyalgia, hyperlipidemia, hypertension, myocardial infarction Psychiatric history: anxiety, depression - Past Surgical History Surgical History: angioplasty/stent, pacemaker/AICD - Social History Smoking Status: Former smoker Smokeless Tobacco Status: Yes Alcohol use: none Drug use: none - Family History Mother Living Status: Cause of : CVA Father Living Status: Age at : 83 Cause of : CHF Hx Family Cardiac Disorders: Yes Hx Family Respiratory Disorders: Yes Medications and Allergies Albuterol Sulfate [Proair Hfa] 2 puff IH Q4H PRN 09/19/16 [History] Atorvastatin [Lipitor] 40 mg PO HS 09/19/16 [History] Beclomethasone Diprop 80mcg [QVAR 80 mcg] 1 puff IH BID 09/19/16 [History] ClonazePAM [Klonopin] 1 mg PO TID PRN 09/19/16 [History] Clopidogrel [Plavix] 75 mg PO DAILY 09/19/16 [History] Ezetimibe [Zetia] 10 mg PO DAILY 09/19/16 [History] Furosemide [Lasix] 20 mg PO DAILY 09/19/16 [History] Gabapentin [Gabapentin] 800 mg PO TID 09/19/16 [History] Lamotrigine [Lamotrigine] 100 mg PO BID 09/19/16 [History] Metformin [Glucophage] 250 - 500 mg PO DAILY 09/19/16 [History] Multivitamin,Therapeutic [Therems] 1 tab PO DAILY 09/19/16 [History] Oxycodone HCl [Roxicodone 30 MG Immed Release] 30 mg PO Q4-6H PRN 09/19/16 [ History] Sertraline [Zoloft] 100 mg PO DAILY 09/19/16 [History] Allergies Penicillins Allergy (Verified 09/19/16 13:16) See Comments does not recall reaction Review of Systems Constitutional: as per HPI, weakness Eyes: bilateral: blurred vision (patient denies), diplopia (patient denies) Nose, mouth and throat: no dizziness, no headache(s) Cardiovascular: rapid heart rate, no chest pain, no palpitations Respiratory: no cough, no dyspnea Gastrointestinal: no abdominal pain, no change in bowel habits Musculoskeletal: no muscle weakness, no numbness Integumentary: no hirsutism, no striae Neurological: dizziness, weakness Psychiatric: no depression, no difficulty concentrating Endocrine: as per HPI Hematologic/Lymphatic: no easy bruising, no lymphadenopathy Exam - Vital Signs Vital signs: Initial Vital Signs Temp Pulse Resp BP Pulse Ox 98.3 F 203 18 124/100 97 09/19/16 11:59 09/19/16 11:59 09/19/16 11:59 09/19/16 11:59 09/19/16 11:59 Vital Signs - Last 8 Hours Pulse Resp BP Pulse Ox 09/20/16 13:00 74 14 146/86 98 09/20/16 12:00 72 14 154/90 98 09/20/16 11:00 73 16 154/122 99 09/20/16 10:00 66 18 148/101 95 09/20/16 09:00 70 16 155/95 98 09/20/16 08:00 68 16 162/100 100 09/20/16 07:15 64 09/20/16 07:00 64 20 144/116 99 09/20/16 06:00 59 14 151/96 97 Intake and Output 09/19/16 09/20/16 09/20/16 23:59 07:59 15:59 Intake Total 1708 / 1708 200 / 200 756 / 756 Output Total 150 / 150 1150 / 1150 1200 / 1200 Balance 1558 / 1558 -950 / -950 -444 / -444 Intake: IV Fluids 608 / 608 200 / 200 156 / 156 Amiodarone 360mg/200mL 400 / 400 Drip Premix 360 mg In 200 ml @ 1 MG/MIN 33.333 mls /hr IVC ONCE ONE Rx#: [id number] Magnesium Sulfate 2 GM In 208 / 208 Dextrose 5% 100 ML @ 96. 296 mls/hr IVPB Q1H DIANE Rx#:[id number] Oral 1100 / 1100 600 / 600 Output: Urine 150 / 150 1000 / 1000 1200 / 1200 Catheter 150 / 150 Other: Meal gold fish Breakfast Percent of Meal Consumed 100% 100% Weight 135.806 kg Blood Glucose* 190 Patient Weight 09/20/16 23:59 Weight 135.806 kg - General Appearance Exam: Patient is alert and oriented. He is in no acute distress. Blood pressure is now 154/90. Urine output has been 2.3 L throughout the day. Neck is supple. Lungs sounds otherwise clear. Heart regular rate and rhythm. Abdomen normal bowel sounds bruits masses or megaly or tenderness. Extremity show no peripheral edema. There is no abnormal skin rashes. Results - Lab Results 09/20/16 12:45 09/20/16 00:47 Most recent lab results Calcium 8.9 mg/dL (8.6-10.8) 09/20/16 00:47 Phosphorus 4.7 mg/dL (2.3-4.7) 09/20/16 00:47 Magnesium 2.2 mg/dL (1.6-2.6) 09/20/16 00:47 Consult Discharge Plan - Plan Referrals: Lavern Iverson, [employer] [Primary Care Provider] -
[2016-09-20] MEDS: *HR* OxyCODONE Immed Rel 15 MG TABLET PO PRN (19:40)
[2016-09-20] MEDS: *HR* Amiodarone 200 MG TABLET PO SCH (20:50)
[2016-09-21] MEDS: *HR* OxyCODONE Immed Rel 15 MG TABLET PO PRN ×3 (00:10→14:26)
[2016-09-21 02:10] LABS: Alanine Aminotransferase 19 Units/L (0-55); Albumin 3.5 g/dL (3.5-5.0); Albumin/Globulin Ratio 1.1 (1.1-2.2); Alkaline Phosphatase 73 Units/L (38-126); Aspartate Amino Transferase 18 Units/L (5-34); BUN/Creatinine Ratio 17 (6-26); Bilirubin,Total 0.7 mg/dL (0.2-1.2); Blood Urea Nitrogen 20 mg/dL (8-26); Calcium 9.2 mg/dL (8.6-10.8); Carbon Dioxide 23 mEq/L (19-29); Chloride 105 mEq/L (98-109); Globulin 3.2 g/dL (2.4-3.5); Glucose 150 mg/dL (70-99); Osmolality,Calculated 291 (280-300); Potassium 4.1 mEq/L (3.5-4.5); Sodium 138 mEq/L (136-145); Total Protein 6.7 g/dL (6.0-8.3); eGFR For African Americans > 60 (> 60); eGFR For Non-African Americans > 60 (> 60)
[2016-09-21] MEDS: Heparin 25,000 UNIT/500 ML D5W 25,000 UNIT/500 ML MLS IVC SCH (02:38)
--- NOTE | 2016-09-21 08:11 | Event Note ---
Date of Encounter: 09/21/16 Time of Encounter: 08:10 Patient says he is feeling better. Vital signs are stable. Heart rate is 74. Urine output is 2.3 L. Creatinine is improved back to baseline at 1.18. Potassium was normal. Patient's acute kidney injury secondary to cardiac arrhythmias has resolved. From a renal perspective the patient is cleared to undergo cardiac catheterization. Nephrology will sign off. Please call again if needed.
[2016-09-21] MEDS: Aspirin 81 MG TAB.CHEW PO SCH (08:27)
[2016-09-21] MEDS: amLODIPine 5 MG TABLET PO SCH (08:29)
[2016-09-21] MEDS: *HR* Amiodarone 200 MG TABLET PO SCH ×2 (08:29→21:45)
[2016-09-21] MEDS: Insulin LISPRO 300 UNITS/3 ML VIAL SQ SCH ×3 (08:29→18:57)
[2016-09-21] MEDS ORDERED: amLODIPine 5 MG TABLET PO SCH (09:00)
--- NOTE | 2016-09-21 09:10 | Event Note ---
Date of Encounter: 09/21/16 Time of Encounter: 09:08 - Cardiology Event Note Patient seen and examined. Plan: - Heart cath today - Nephrology signed off, kidney function is back to baseline, good urine output - No acute events overnight, denies any chest pain or shortness of breath - Will start IVF prior to cath to minimize contrast induced nephropathy - Patient ok with plan, wants to proceed, all questions were answered.
[2016-09-21] MEDS ORDERED: 0.9 % Sodium Chloride 1,000 ML IVC SCH (09:15)
[2016-09-21] MEDS ORDERED: 0.9 % Sodium Chloride 1,000 ML ONE ×2 (11:36→11:47)
[2016-09-21] MEDS ORDERED: Heparin 1,000 UNITS/500 mL NS 500 ML ONE (11:37)
[2016-09-21] MEDS ORDERED: *HR* Heparin 10,000 UNIT/10 ML VIAL ONE (11:37)
--- NOTE | 2016-09-21 11:37 | Pre-Sedation Evaluation ---
Pre-sedation evaluation - Pre-sedation checklist Date of procedure: 09/21/16 Procedure: [facility] Recent Vitals: Last Vital Signs Temp 97.7 F 09/21/16 07:34 Pulse 74 09/21/16 07:34 Resp 16 09/21/16 07:34 BP 136/97 09/21/16 07:34 Pulse Ox 96 09/21/16 07:34 H&P (including ROS) documented in medical record: Yes Previous reaction to sedatives/anesthetics: No Dietary Status: No solid food in preceding 4 hrs and no liquid in preceding 2 hrs Airway Assessment: Patient can open mouth completely, TMJ function normal ASA Classification *see protocol: CLASS II-Mild systemic disease Plan of Care: Pt appropriate candidate for procedure/moderate/conscious sedation , Risks/benefits of procedure/sedation discussed w/ patient/family
[2016-09-21] MEDS ORDERED: *HR* Midazolam HCl 2 MG/2 ML VIAL ONE (11:58)
[2016-09-21] MEDS ORDERED: *HR* FentaNYL (PF) 100 MCG/2 ML VIAL ONE (11:58)
[2016-09-21] MEDS ORDERED: Nitroglycerin 1,000 MCG/10 ML VIAL IV ONE (12:01)
[2016-09-21] MEDS ORDERED: Verapamil 5 MG/2 ML VIAL ONE (12:01)
--- NOTE | 2016-09-21 12:58 | Invasive Diagnostic Lab Proc ---
Name: Oniel Jordan Date of Study: 09/21/2016 Date: 1955 Ht: 74.0in Medical Record#: [id number] Age: 61 Wt: 299.39lb Gender: Male BSA: 2.58 Order #: [id number] BMI: 38.42 Physicians Procedure Physician: Darrian Stein MD Referring MD: Referring MD: Staff Name Position Time In Pastora Manzano RN Ticket Sales Supervisor 11:56 AM Nehal Wagoner RT (R) Scrub 11:56 AM Michelle Zaidi RN Monitor 11:56 AM Indications Indication Non-Stemi Procedures Performed Procedure L HRT ARTERY/VENTRICLE ANGIO IV Doppler BLD Flow 1st Vessel Pre-Procedure Checklist Informed consent is complete signed and on chart. H\\T\\P is on chart. ID band is on and ID verified with patient. Patient NPO for procedure The procedure was described for the patient and questions were answered. ECG is on chart. Plan of Care Patient will tolerate the procedure without complications. Adequate level of comfort will be maintained. Hemodynamics will remain stable Patient will recover from procedure without complications. Respiratory function will be maintained. Cardiac rhythm will remain stable. Patient temperature will be maintained. Patient and/or family have verbalized understanding of the procedure. Patient Education Chief Complaint/Reason for Test: Cardiac Cath Developmental Category: Adult (18-64 years) Developmentally Appropriate for Age: Yes Learning Barriers: None Education Needs: Procedure Education Method: Verbal Information Taught: Cardiac Cath Educational Evaluation: Able to repeat information Intravenous Access Time IV Size Location DC'd Fluid/Drip Rate Units RN 11:43 AM 18g 1 /" Patent On Arrival Lt Antecubital 0.9 w/ Sodium Bicarbonate 25 ml/hr Allergies PCN Vital Signs Time BP (mmHg) HR (bpm) O2 Sat. RR (bpm) LOC 11:57 AM / % 5 = Fully awake and oriented or at pre-proc level 11:57 AM / % 5 = Fully awake and oriented or at pre-proc level 12:12 PM / % 5 = Fully awake and oriented or at pre-proc level 12:27 PM / % 5 = Fully awake and oriented or at pre-proc level 11:56 AM 162 / 101 66 100 % 11 12:00 PM 161 / 98 64 99 % 11 12:05 PM 150 / 88 65 99 % 9 12:10 PM 141 / 71 60 99 % 20 12:15 PM 123 / 72 59 100 % 15 12:20 PM 139 / 74 59 100 % 13 12:25 PM 149 / 84 60 99 % 8 12:30 PM 150 / 85 60 99 % 16 12:35 PM 137 / 73 60 99 % 10 12:40 PM 149 / 86 59 99 % 11 Procedural Medications Time Medication Dose Units Method Given By 11:57 AM Oxygen 2 L/min nasal cannula Pastora Manzano RN 11:57 AM Versed 2 mg Intravenous Pastora Manzano RN 11:57 AM Fentanyl 50 mcg Intravenous Pastora Manzano RN 12:04 PM Lidocaine 2% 0.5 ml Subcutaneous Darrian Stein MD 12:05 PM Heparin 4000 units Intraarterial Darrian Stein MD Nitroglycerin 200 mcg Intraarterial Darrian Stein MD Verapamil 2.5 mg Intraarterial Darrian Stein MD 12:32 PM Nitroglycerin 200 mcg Intracoronary Darrian Stein MD 12:36 PM Heparin 2000 units Intravenous Pastora Manzano RN 12:37 PM Heparin 2000 units flush bowl ASA Classification: CLASS II- Mild systemic disease (i.e. well-controlled diabetes, hypertension, asthma, cigarette smoking) Dede Score Preprocedure Postprocedure Activity 2- Moves 4 extremities sustained head lift Activity 2- Moves 4 extremities sustained head lift Circulation 2- SBP +/= 20 points of pre-anesthetic level Circulation 2- SBP +/= 20 points of pre-anesthetic level Consciousness 2- Awake and alert oriented x 3 Consciousness 2- Awake and alert oriented x 3 O2 Saturation 2- Able to maintain O2 satruation of 92% on room air O2 Saturation 2- Able to maintain O2 satruation of 92% on room air Respiratory 2- Able to deep breathe and cough well Respiratory 2- Able to deep breathe and cough well Total Score 10 Total Score 10 Contrast Agent: Isovue Diagnostic Contrast: 82 ml Total Contrast: 82 ml Fluoro Dose: 887 mGy Activated Clotting Time Time Seconds to Clot 12:28 PM 400 12:36 PM 205 Procedure Log Time Note Enter By 11:55 AM Vitals capture started with the following parameters, Patient=Adult, Interval=5 min, Initial Jjsggzok=914 mmHg, Deflation Rate=5 mmHg, Cuff placed on Right Arm 11:56 AM Pt arrived to laboratory machinist 2 at 11:56 ejohnson 11:56 AM HR=66 bpm, EHOV=218/101 mmhg, MvE6=359 %, Resp=11 B/min 11:56 AM Pastora Manzano RN Position: Ticket Sales Supervisor Time in: 11:56 ejohnson 11:56 AM Nehal Wagoner RT (R) Position: Scrub Time in: 11:56 ejohnson 11:56 AM Michelle Zaidi RN Position: Monitor Time in: 11:56 ejohnson 11:56 AM Patient charges- Angio tray pack, Navilyst 3mm J, Pulse Oximetry and ACIST tubing and transducer ejohnson 11:56 AM Case Delayed No ejohnson 11:57 AM Hair removed from procedure site in procedure lab using clippers. Right wrist prepped with Chloraprep by Nehal Wagoner RT (R) then patient draped. Skin intact. ejohnson 11:57 AM Meet and lex completed ejohnson 11:57 AM Sign in performed according to hospital policy. ejohnson 11:57 AM Procedure start 11:57 ejohnson 11:57 AM Time: 11:57 Oxygen on at 2 L/min per nasal cannula [facility] 11[facility]57 AM Time: 11:57 Versed 2 mg Intravenous Given by Past[facility] 11:57 AM Time: 11:57 Fentanyl 50 mcg Intravenous Given by Pastora Manzano RN [facility] 11:57 AM Time: 11:57 Patient comfortable and pain free: Yes ejohnson 11:57 AM Time: 11:57LOC: 5 = Fully awake and oriented or at pre-proc level ejohnson 11:57 AM CathStat 12:00 PM HR=64 bpm, UVSE=715/98 mmhg, SpO2=99.0 %, Resp=11 B/min, Comment=SR 12:04 PM Time out performed according to hospital policy ejohnson 12:04 PM Time: 12:04 0.5 ml Lidocaine 2% to right radial Subcutaneous Given by ejohnson 12:04 PM Access obtained by percutaneous puncture. 6Fr 10cm Terumo Glidesheath sheath placed in right Radial artery. [id number] ejohnson 12:04 PM Pressure channel 1 zeroed. 12:05 PM Time: 12:05 Patient given 4,000 units Heparin, 200 mcg Nitroglycerin, and 2.5 mg Verapamil Intraarterial by ejohnson 12:05 PM HR=65 bpm, SOGA=220/88 mmhg, SpO2=99.0 %, Resp=9 B/min, Comment=SR 12:06 PM 5Fr TIG catheter inserted over the wire DNC ejohnson 12:06 PM RCA angiography performed in multiple views. ejohnson 12:06 PM Recorded Pressure: Ao, HR=63, Condition=Condition 1 (Aorta) Ao 101/74/86 12:07 PM Coronary Dominance: right ejohnson 12:08 PM LCA angiography performed in multiple views. ejohnson 12:08 PM Recorded Pressure: Ao, HR=61, Condition=Condition 1 (Aorta) Ao 107/80/92 12:08 PM Lesion found in Distal RCA. Pre Stenosis: 100 Pre YASH Flow: 0: No Flow/No perfusion ejohnson 12:09 PM Right Coronary, Right Posterior Descending Arteries with Right Posterolateral and Acute Marginal branches with 100 % stenosis. ejohnson 12:09 PM Lesion found in LMCA. Pre Stenosis: 30 Pre YASH Flow: 3: Complete and Brisk Flow/Perfusion ejohnson 12:09 PM Left Main Coronary Artery with 30% stenosis ejohnson 12:09 PM Catheter removed ejohnson 12:09 PM 5Fr FL 3.5 catheter inserted over the wire [id number] ejohnson 12:10 PM HR=60 bpm, SRLU=027/71 mmhg, SpO2=99.0 %, Resp=20 B/min, Comment=SR 12:11 PM Recorded Pressure: Ao, HR=60, Condition=Condition 1 (Aorta) Ao 105/75/88 12:12 PM Time: 11:57 Patient comfortable and pain free: Yes ejohnson 12:12 PM Time: 11:57LOC: 5 = Fully awake and oriented or at pre-proc level ejohnson 12:12 PM Catheter removed ejohnson 12:14 PM 5Fr Pigtail catheter inserted over the wire [facility] ejohnson 12:14 PM Catheter selectively placed in left ventricle ejohnson 12:15 PM Pressure channel 1 zeroed. 12:15 PM Bolus angiogram of left Ventricle complete: 12 ml/sec for a total of 25 mls ejohnson 12:15 PM Recorded Pressure: LV, HR=59, Condition=Condition 1 (Left Ventricle) LV 141/26/38 12:15 PM HR=59 bpm, UROA=675/72 mmhg, GwA7=824 %, Resp=15 B/min 12:16 PM Recorded Pressure: LV, Ao, HR=61, Condition=Condition 1 (Left Ventricle) LV 124/23/35, (Aorta) Ao 112/71/88 12:17 PM Catheter removed ejohnson 12:18 PM Inflation device was opened. ejohnson 12:18 PM 6Fr EBU 3.25 Medtronic guide catheter was used to cannulate the PCI vessel successfully. reused? No ejohnson 12:20 PM HR=59 bpm, DAIL=146/74 mmhg, NdS0=514.0 %, Resp=13 B/min, Comment=SR 12:22 PM Lesion found in Proximal LAD. Pre Stenosis: 60 Pre YASH Flow: 3: Complete and Brisk Flow/Perfusion ejohnson 12:22 PM Proximal Left Anterior Descending Coronary Artery with 60% stenosis. ejohnson 12:23 PM .014 PT Graphix 180cm guide wire across target lesion- successful. reused? No ejohnson 12:25 PM HR=60 bpm, HAGU=825/84 mmhg, SpO2=99.0 %, Resp=8 B/min, Comment=SR 12:26 PM 3.0 mm x 12 mm Emerge Monorail balloon across target lesion- successful. reused? No ejohnson 12:26 PM Recorded Pressure: Ao, HR=60, Condition=Condition 1 (Aorta) Ao 140/99/117 12:27 PM Time: 12:12LOC: 5 = Fully awake and oriented or at pre-proc level ejohnson 12:27 PM Time: 12:12 Patient comfortable and pain free: Yes ejohnson 12:28 PM At 12:28 the ACT was 400 seconds. ejohnson 12:30 PM HR=60 bpm, YGOF=986/85 mmhg, SpO2=99.0 %, Resp=16 B/min, Comment=SR 12:31 PM Balloon catheter removed intact. ejohnson 12:33 PM Time: 12:32 Nitroglycerin 200 mcg Intracoronary Given by Darrian Stein MD ejohnson 12:33 PM Recorded Pressure: Ao, HR=64, Condition=Condition 1 (Aorta) Ao 143/93/113 12:35 PM HR=60 bpm, HPWY=129/73 mmhg, SpO2=99.0 %, Resp=10 B/min, Comment=SR 12:36 PM 3.0Fr/40mHz [employer] Opti Cross IVUS catheter was inserted into guide catheter and advanced to lesion. IVUS study was done and the catheter was removed. ejohnson 12:36 PM At 12:36 the ACT was 205 seconds. ejohnson 12:36 PM Time: 12:36 Heparin 2000 units Intravenous Given by Pastora Manzano RN ejohnson 12:37 PM Time: 12:37 Heparin 2000 units flush bowl Given by ejohnsflavio 12:40 PM IVUS catheter removed intact ejohnson 12:40 PM HR=59 bpm, TYAV=517/86 mmhg, SpO2=99.0 %, Resp=11 B/min, Comment=SR 12:42 PM Arterial sheath pulled, Vasc Band closure device used and was Successful S/N. ejohnson 12:42 PM Time: 12:27 Patient comfortable and pain free: ejohnson 12:43 PM Time: 12:27LOC: 5 = Fully awake and oriented or at pre-proc level ejohnson 12:43 PM Time: 12:42 Patient comfortable and pain free: Yes ejohnson 12:43 PM Procedure completed at 12:43 ejohnson 12:43 PM Sign out completed: Radiation Dose 886.59 mGy Fluoro Time: 6.3 Isovue 370 - 200ml contrast 82 ml given by Darrian Stein MD. Complications: NoneCardiac Rehab Consult needed: NoConfirmed administered medications: Yes ejohnson 12:44 PM Isovue 370 - 200ml,1 Bottle(s) used. ejohnson 12:44 PM 13 ml air in Vasc Band. ejohnson 12:44 PM Post ECG NSR ejohnson 12:44 PM Post Blood Pressure 149/82 ejohnson 12:44 PM 12:44 Post Pulses Rt Radial 1+ ejohnson 12:44 PM Information taught IVUS/Flowire and Vasc Band ejohnson 12:44 PM Education needs Plan of Care, Disease Process, and Responsibilities of Patient in Care ejohnson 12:45 PM Learning barriers :None ejohnson 12:45 PM Education Methods Verbal ejohnson 12:45 PM Education evaluation Able to repeat information ejohnson 12:45 PM Site status No bleeding/hematoma - Rt Wrist as reported by Sites, Nehal RT (R) at 12:45 ejohnson 12:45 PM Plavix, Effient or Brilinta given No ejohnson 12:51 PM Delay to floor No ejohnson 12:51 PM Patient out of room: 12:51 ejohnson 12:51 PM Family placed in none at this time. ejohnson 12:52 PM Complications: None ejohnson 12:52 PM Report given to Karena PINEDA Pt taken to E Room #16. 12:52 ejohnson Complications Complication None None Hemodynamics Pressures Site Systolic/A Wave Diastolic/V Wave Mean AO 101 74 86 AO 107 80 92 AO 105 75 88 LV 141 26 38 LV 124 23 35 AO 112 71 88 AO 140 99 117 AO 143 93 113 Post Procedure Information Blood Pressure: 149/82 mmHg Rhythm: NSR Post procedural instructions were given Closure Device Time Device Success/Fail 09/21/2016 12:42:00 PM Mechanical Compression Successful Site Checks Time Location Status Staff Sheath In? Note 12:45 PM Rt Wrist No bleeding/hematoma Sites, Nehal RT (R) Pulses Time Site Pre-Procedure Post-Procedure Note 09/21/2016 11:44:00 AM Bilateral DP \\T\\ PT 2+ 09/21/2016 11:44:00 AM Bilateral radial 2+ 09/21/2016 11:55:00 AM Rt Radial Normal plethysmography's Test 12:44:00 PM Rt Radial 1+ Updated by Michelle Zaidi RN on 09/21/2016 12:54:35 PM Michelle Zaidi RN electronically signed on 09/21/2016 12:55:21 PM with status of Final
--- NOTE | 2016-09-21 14:54 | Invasive Diagnostic Lab ---
Name: Oniel Jordan Date of Study: 09/21/2016 Date: 1955 Ht: 188.0 cm /74.0 in Medical Record#: [id number] Age: 61 Wt: 135.8 kg / 299.39 lb Account/Order#: [id number] Gender: Male BSA: 2.58 Order #: [id number] Fluoro Dose: 887 mGy BMI: 38.42 Procedure Physician: Darrian Stein MD [facility] Referring MD: Lavern Iverson MD Referring MD: Procedures Performed: LEFT HEART CATH IVUS First vessel Moderate sedation Indications: Non-Stemi Impressions: There is a distal RCA AG SERVICE MANAGER with collaterals Moderate diseased LAD Severe systolic CHF by echo Recommendations: Optimal medical therapy of patient's disease. Aggressive risk factor modification. History/Risk Factors: cardiomyopathy CVA Diabetes Dyslipidemia CHF within 2 weeks Chronic Lung Disease Procedure Access obtained in the right Radial artery by percutaneous puncture A intravascular ultrasound catheter was fully inserted through the sheath into the distal part of the vessel. Image recording was initiated and coronary ultrasound images were acquired during slow pullback. Complications: None Contrast: Isovue 82ml Hemodynamics: Pressures Site Systolic/ A Wave Diastolic/ V Wave End Diastolic/ Mean HR AO 101 74 86 63 AO 107 80 92 61 AO 105 75 88 60 LV 141 26 38 59 LV 124 23 35 60 AO 112 71 88 63 AO 140 99 117 60 AO 143 93 113 64 Coronary Dominance: right Lesion Findings/Interventions * Left Main Coronary Artery There is a 30-40% stenosis in the LMCA. The lesion has a YASH flow of 3. * Left Anterior Descending There is a 60% stenosis in the Proximal LAD. The lesion has a YASH flow of 3. Mid LAD 40% stenosis CHAPIS of proximal LAD is 6mm2 by IVUS. * Circumflex The Circumflex has mild disease The 1st Marginal has mild disease * Right Coronary Artery There is a 100% stenosis in the Distal RCA. The lesion has a YASH flow of 0 and has collaterals which feed from right to right. Updated by Michelle Zaidi RN on 09/21/2016 12:49:02 PM Darrian Stein MD electronically signed on 09/21/2016 2:49:34 PM with status of Final
--- NOTE | 2016-09-21 18:38 | Internal Med Progress Note ---
Date of Encounter: 09/21/16 Time of Encounter: 08:45 - Assessment and plan (1) Ventricular tachycardia Current Visit: Yes Status: Resolved Assessment and plan: Resolved. To have cath today to r/o ischemia. (2) Essential hypertension Current Visit: Yes Status: Acute Assessment and plan: Continue home medications. (3) CAD (coronary artery disease) Current Visit: Yes Status: Chronic Assessment and plan: Cardiac cath today. Qualifiers: Coronary Disease-Associated Artery/Lesion type: seminole artery [place] vs. transplanted heart: seminole heart Associated angina: without angina Qualified Code(s): I25.10 - Atherosclerotic heart disease of seminole coronary artery without angina pectoris (4) Diabetes mellitus Current Visit: Yes Status: Chronic Assessment and plan: Continue home meds after cath. NPO for now. Qualifiers: Diabetes mellitus type: type 2 Diabetes mellitus complication status: with hyperglycemia Diabetes mellitus exterminator insulin use: without exterminator use Qualified Code(s): E11.65 - Type 2 diabetes mellitus with hyperglycemia (5) Obesity (BMI 30-39.9) Current Visit: Yes Status: Chronic - Subjective Interval history: Mr. Jordan is currently admitted for ventricular tachycardia. He remains high risk due to potential of further cardiac issues. Mr. Jordan feels OK today. He is awaiting cardiac cath. No CP or SOB. No GI symptoms. He is hungry. - Constitutional Vitals: Temp Pulse Resp BP Pulse Ox 97.7 F 98 16 118/66 96 09/21/16 15:55 09/21/16 15:55 09/21/16 15:55 09/21/16 15:55 09/21/16 15:55 General appearance: Present: A&O X 3, pleasant, answers questions appropriately - Head Head exam: Present: normocephalic - Eye Eye exam: Present: conjuntiva pink - ENT ENT exam: Present: mucous membranes dry - Respiratory Respiratory exam: Present: decreased breath sounds, CTAB - Cardiovascular Cardiovascular exam: Present: RRR. Absent: tachycardia - GI/Abdominal GI/Abdominal exam: Present: soft. Absent: tenderness - Extremities Exam Extremities exam: Present: warm. Absent: pedal edema - Neurological Exam Neurological exam: Present: alert, oriented X3, no focal deficits - Skin Skin exam: Present: warm. Absent: rash Additional comments: Ecchymoses present. Internal Medicine: Result - Labs CBC & Chem 7: 09/20/16 12:45 09/21/16 01:36 Labs: BMP 09/21/16 01:36 Sodium 138 Potassium 4.1 Chloride 105 Carbon Dioxide 23 BUN 20 Creatinine 1.18 Glucose 150 H Calcium 9.2 Liver Function 09/21/16 Range/Units 01:36 Total Bilirubin 0.7 (0.2-1.2) mg/dL AST 18 (5-34) Units/L ALT 19 (0-55) Units/L Alkaline Phosphatase 73 (38-126) Units/L Albumin 3.5 (3.5-5.0) g/dL - ABG Interpretation ABG results: PT/INR, D-dimer PT 11.6 Seconds (9.4-12.1) 09/20/16 12:45 Consult Discharge Plan - Plan Referrals: Lavern Iverson, HAND COLLATOR [Primary Care Provider] -
[2016-09-22] MEDS ORDERED: APIXABAN 5 MG TABLET PO SCH (07:00)
[2016-09-22 07:31] VITALS: BP 163/90
[2016-09-22] MEDS: Insulin LISPRO 300 UNITS/3 ML VIAL SQ SCH ×2 (08:18→12:13)
[2016-09-22] MEDS: *HR* Amiodarone 200 MG TABLET PO SCH (08:19)
[2016-09-22] MEDS: Aspirin 81 MG TAB.CHEW PO SCH (08:19)
[2016-09-22] MEDS: amLODIPine 5 MG TABLET PO SCH (08:19)
--- NOTE | 2016-09-22 09:11 | Cardiology Progress Note ---
Date of Encounter: 09/22/16 Time of Encounter: 09:09 Assessment and Plan (1) Ventricular tachycardia Current Visit: Yes Status: Resolved - Patient has known history of inducible ventricular tachycardia and is s/p ICD. He was previously on sotalol, but decided to stop taking it several months ago. - ECG in the ED (pre-cardioversion) is consistent with Afib with RVR with aberrant conduction. ICD interrogation also shows pAfib. - LHC yesterday showed distal RCA [address] LIGHT and moderate LAD disease not amendable to PCI, aggressive medical therapy - On PO amiodarone 400mg BID, will decrease to 200mg daily for discharge - Correct K to > 4.0 and Mg to > 2.0. - Echo EF decreased to 25% (previously 45-50%) - Heparin gtt stopped last night - Started on Eliquis today for pA-fib - Repeat EKG today to evaluate QTc and rhythm - Planned to sign off today - F/u with cardiology clinic in 1-2 weeks - Further recommendations pending attending evaluation Discussion w patient/family: The assessment and plan as outlined above was discussed with the patient and/or family members who expressed understanding and agreement. All questions were answered. Thank you for involving us in the care of your patient. Please call with any questions. Subjective Principal diagnosis: Vtach Interval history: Had heart cath yesterday which showed distal RCA [address] LIGHT, moderate disease in LAD, and severe CHF. No PCI. Recommended aggressive risk factor modifications and medical optimization. No acute issues overnight reported by the patient. Objective Vital Signs, Last 4 Hours Temp Pulse Resp BP Pulse Ox 09/22/16 07:25 97.9 F 66 18 163/90 100 General: Conversant, No Apparent Distress HEENT: Atraumatic, Normocephaly, Mucus Membranes Moist Neck: No JVD, Normal carotid pulses Cardiac: Reg Rate and Rhythm, Normal S1 and S2, No Murmur Lungs: Normal Breath Sounds, No Wheeze, Rales, Rhonchi Neuro: Alert and responsive, No focal deficits noted Abdomen: Soft, Non-Tender Skin: No rashes noted on visualized skin Musculoskeletal: No Chest Wall Tenderness Extremities: No Clubbing, No Cyanosis, No Edema, Normal Pulses Results 09/20/16 12:45 09/21/16 01:36 - Imaging and Cardiology Chest Xray: report reviewed, image reviewed Echo: report reviewed Cardiac cath: report reviewed Consult Discharge Plan - Plan Referrals: Lavern Iverson, [facility] [Primary Care Provider] -
--- NOTE | 2016-09-22 12:31 | Discharge Summary ---
Date of Encounter: 09/22/16 Time of Encounter: 09:30 - Discharge Diagnosis (1) Ventricular tachycardia Priority: Primary Status: Resolved (2) Paroxysmal atrial fibrillation Priority: Secondary Status: Chronic (3) Essential hypertension Priority: Secondary Status: Acute (4) CAD (coronary artery disease) Priority: Secondary Status: Chronic Qualifiers: Coronary Disease-Associated Artery/Lesion type: [place] artery [place] vs. transplanted heart: [place] heart Associated angina: without angina Qualified Code(s): I25.10 - Atherosclerotic heart disease of [place] coronary artery without angina pectoris (5) Diabetes mellitus Priority: Secondary Status: Chronic Qualifiers: Diabetes mellitus type: type 2 Diabetes mellitus complication status: with hyperglycemia Diabetes mellitus [employer] insulin use: without [employer] use Qualified Code(s): E11.65 - Type 2 diabetes mellitus with hyperglycemia (6) Obesity (BMI 30-39.9) Priority: Secondary Status: Chronic (7) IVET (acute kidney injury) Priority: Secondary Status: Resolved - Discharge Medications Prescriptions: Amiodarone [Cordarone] 200 mg PO DAILY #30 tablet Amlodipine [Norvasc] 10 mg PO DAILY #30 tablet Apixaban [Eliquis] 5 mg PO Q12H #60 tablet Carvedilol [Coreg] 3.125 mg PO BIDWM #30 tablet Home Medications: Albuterol Sulfate [Proair Hfa] 2 puff IH Q4H PRN 09/19/16 [History] Atorvastatin [Lipitor] 40 mg PO HS 09/19/16 [History] Beclomethasone Diprop 80mcg [QVAR 80 mcg] 1 puff IH BID 09/19/16 [History] ClonazePAM [Klonopin] 1 mg PO TID PRN 09/19/16 [History] Clopidogrel [Plavix] 75 mg PO DAILY 09/19/16 [History] Ezetimibe [Zetia] 10 mg PO DAILY 09/19/16 [History] Furosemide [Lasix] 20 mg PO DAILY 09/19/16 [History] Gabapentin 800 mg PO TID 09/19/16 [History] Lamotrigine 100 mg PO BID 09/19/16 [History] Multivitamin,Therapeutic [Therems] 1 tab PO DAILY 09/19/16 [History] Oxycodone HCl [Roxicodone 30 MG Immed Release] 30 mg PO Q4-6H PRN 09/19/16 [ History] Sertraline [Zoloft] 100 mg PO DAILY 09/19/16 [History] Amiodarone [Cordarone] 200 mg PO DAILY #30 tablet 09/22/16 [Rx] Amlodipine [Norvasc] 10 mg PO DAILY #30 tablet 09/22/16 [Rx] Apixaban [Eliquis] 5 mg PO Q12H #60 tablet 09/22/16 [Rx] Aspirin 81 mg PO DAILY tab.chew 09/22/16 [Rx] Carvedilol [Coreg] 3.125 mg PO BIDWM #30 tablet 09/22/16 [Rx] Metformin [Glucophage] 250 - 500 mg PO DAILY #0 09/22/16 [Rx] Allergies/Adverse Reactions: Allergies Penicillins Allergy (Verified 09/19/16 13:16) See Comments does not recall reaction Procedures/tests Complete & Pending: Procedures Performed prior 72 hours Category Date Time Status CL Cardiac Catheterization [CL] Routine Scuba Instructor 09/21/16 09:51 Completed ECG 12 lead ECG [ECG] Routine Y 09/20/16 Completed EKG [ECG 12 lead ECG] [ECG] Stat Y 09/22/16 09:31 Ordered Date of admission: 09/19/16 13:23 Primary care physician: Lavern Iverson CNP Consults: 09/19/16 15:23 Consult to Associate Art Director [CONS] Routine Reason for SW Consult: Patient would like to have living will and advanced directives 09/20/16 11:20 Consult to Nephrology [CONS] Routine Consulting Provider: [facility] Spcbarbert SHERYL Reason for Consult: IVET Call Completed: Yes 09/21/16 07:45 Consult to Hospitalist [CONS] Routine Consulting Provider: Hospitalist Arely Reason for Consult: assume care outside of ICU Time Notified: 07:45 Call Completed: Yes 09/21/16 14:38 Consult to Cardiac Rehabilitation-Phase1 [CONS] Routine Comment: Reason for Consult: post op cath Call Completed: Yes Discharging clinician: Alphonso Fernández Anticipated date of discharge: 09/22/16 - Patient Status Disposition: Home, Self-Care Condition: Good Functional capacity at discharge: independent ambulation Overall status at discharge: patient is progressing back to baseline - Discharge Instructions Instructions: Amiodarone (By mouth), Atrial Fibrillation (DC), Pacemaker (DC), Diabetes Mellitus Type 2 in Adults (DC), Chronic Hypertension (DC) Follow Up With: Lavern Iverson CNP [Primary Care Provider] - 10/13/16 11:00 am - Diet and Activity Activity: increase activity as tolerated Diet: advance to your usual diet Hospital course: Mr. Jordan is a 61 year old male with hx of systolic heart failure and AICD presented to ED from cardiology office. He had interrogation of his AICD and there were noted to be runs of VT. He was dizzy and weak as well. In ED he was diaphoretic and nauseous. He had a wide complex tachycardia and ultimately was electrically cardioverted. He was started on IV amiodarone and admitted to the ICU. He was also noted to have atrial fibrillation with aberrancy. He was admitted to ICU. He was continued on IV amiodarone and then switched to oral. He was evaluated by cardiology and noted to have decrease in his EF. He was noted to also have IVET and was evaluated by nephrology. Cardiac catheterization was held until renal function improved. He underwent cardiac catheterization on 09/21 and medical management was recommended. On 09/22 he was feelling well. He had no further dysrhythmia. He was cleared for discharge by cardiology. His blood pressure was controlled and he was afebrile. He was discharged home in stable condition on PO amiodarone and Eliquis. - Time Spent with Patient Total time spent providing and/or coordinating discharge services: 41min - Constitutional Vitals: Temp Pulse Resp BP Pulse Ox 97.9 F 66 18 163/90 100 09/22/16 07:25 09/22/16 07:25 09/22/16 07:25 09/22/16 07:25 09/22/16 07:25 General appearance: Present: A&O X 3, pleasant, answers questions appropriately - Head Head exam: Present: normocephalic - Eye Eye exam: Present: conjuntiva pink - ENT ENT exam: Present: mucous membranes dry - Respiratory Respiratory exam: Present: decreased breath sounds, CTAB - Cardiovascular Cardiovascular exam: Present: RRR. Absent: tachycardia - GI/Abdominal GI/Abdominal exam: Present: soft. Absent: tenderness - Extremities Exam Extremities exam: Present: warm - Neurological Exam Neurological exam: Present: alert, oriented X3, no focal deficits - Skin Skin exam: Present: warm. Absent: rash
[2016-09-23] MEDS ORDERED: *HR* Amiodarone 200 MG TABLET PO SCH (09:00)
--- NOTE | 2016-09-23 16:13 | Electrocardiograph Report ---
[facility] Test Date: 2016-09-22 Pat Name: Oniel Jordan Department: 111 Room: 2NE16 Gender: M Classifications Officer Cc/Cm: [id number] : 1955 Requested By: Jagjit Murphy Order Number: [id number] Reading MD: Terry Booker DO Measurements Intervals [place] Rate: 67 P: 39 IL: 186 QRS: 68 QRSD: 176 T: -56 QT: 483 QTc: 498 Interpretive Statements SINUS RHYTHM RIGHT BUNDLE BRANCH BLOCK INFERIOR MYOCARDIAL INFARCTION, OF INDETERMINATE Electronically Signed On 09-23-16 16:12:30 EST by Terry Booker DO
== END 2016-09-22 16:07 | disposition home or self-care (01) | DRG 192 ==
LOC: EMEROO 11:27 → ICNU 13:23 → SUATTDRO 13:23 → ICNU 14:02 → 2NENU 09-20 13:52
PROVIDERS: ADMIT Specialist; ATTEND Internal Medicine

== ENCOUNTER 2016-10-20 16:48 | Inpatient (IN) ==
--- NOTE | 2016-10-20 17:01 | Emergency Department Note ---
START Narrative - START START: I examined this patient and my medical decision-making was reviewed with the OPTOMETRIC AIDE/PA/Advanced Practice Nurse/Resident Physician. I agree with the documented findings, disposition and treatment plan as described except to the extent set forth below. ED attending note: I saw this Patient with the emergency medicine resident Dr. Vela. Please see a copy of his note for details of the H&P, evaluation, management and disposition of this emergency Department patient. We independently had [id number] contact with the patient. Briefly: 61-year-old male by wheelchair from cardiology clinic his AICD went off after around bout of V. tach. As it was supposed to do. However is been complaining of dizziness for at least a month with some chest discomfort lightheadedness. EKG shows nonspecific ST-T changes. Chest x-ray and blood work up pending. We will consult cardiology. Admission is possible. Patient appears stable. Disposition pending
--- NOTE | 2016-10-20 17:10 | Emergency Department Note ---
Disposition Clinical Impression: Defibrillator discharge, Elevated troponin Pneumonia Qualifiers: Pneumonia type: due to unspecified organism Laterality: right Lung location: lower lobe of lung Qualified Code(s): J18.1 - Lobar pneumonia, unspecified organism Disposition: Admitted As Inpatient Condition: Good Chest Pain HPI - General Chief Complaint: ED Chest Pain Stated Complaint: CP/SOB Time Seen by Provider: 10/20/16 17:10 Source: patient Mode of arrival: wheelchair Limitations: no limitations Vital Signs Reviewed: Yes Nursing Notes Reviewed: Yes - History of Present Illness HPI Narrative: 61-year-old male presents to the ER status post AICD firing Pt complaint: chest pain, other Duration: intermittent Onset: during rest Pain Location: substernal Severity scale (1-10): 6 Quality: heaviness Pain Radiation: none Improves with: nothing Worsens with: nothing Associated symptoms: Reports: dyspnea, palpitations. Denies: nausea, vomiting, syncope Treatments prior to arrival chest pain: none - Related Data On Oral Contraceptives: No Home Medications Medication Instructions Recorded Confirmed Albuterol Sulfate [Proair Hfa] 2 puff IH Q4H PRN 09/19/16 10/20/16 Atorvastatin [Lipitor] 40 mg PO HS 09/19/16 10/20/16 Beclomethasone Diprop 80mcg [QVAR 1 puff IH BID 09/19/16 10/20/16 80 mcg] ClonazePAM [Klonopin] 1 mg PO TID PRN 09/19/16 10/20/16 Ezetimibe [Zetia] 10 mg PO DAILY 09/19/16 09/19/16 Furosemide [Lasix] 20 mg PO DAILY 09/19/16 10/20/16 Gabapentin 800 mg PO TID 09/19/16 10/20/16 Lamotrigine 100 mg PO BID 09/19/16 10/20/16 Multivitamin,Therapeutic [Therems] 1 tab PO DAILY 09/19/16 10/20/16 Oxycodone HCl [Roxicodone 30 MG 30 mg PO Q4-6H PRN 09/19/16 10/20/16 Immed Release] Clopidogrel [Plavix] 75 mg PO DAILY 10/20/16 10/20/16 Magnesium Oxide [Mag-Ox] 400 mg PO DAILY 10/20/16 10/20/16 Metformin [Glucophage] 250 mg PO QPM 10/20/16 10/20/16 Previous Rx's Medication Instructions Recorded Amiodarone [Cordarone] 200 mg PO DAILY #30 tablet 09/22/16 Amlodipine [Norvasc] 10 mg PO DAILY #30 tablet 09/22/16 Aspirin 81 mg PO DAILY tab.chew 09/22/16 Carvedilol [Coreg] 3.125 mg PO BIDWM #30 tablet 09/22/16 Allergies Allergy/AdvReac Type Severity Reaction Status Date / Time Penicillins Allergy See Verified 09/19/16 13:16 Comments All systems ED: reviewed and negative except as stated. Constitutional: Denies: fever Cardiovascular: Reports: chest pain, palpitations, dyspnea on exertion Respiratory: Reports: dyspnea, wheezes, hemoptysis. Denies: cough Gastrointestinal: Denies: abdominal pain, nausea, vomiting Musculoskeletal: Denies: neck pain Chest Pain PMH - Past Medical History Medical history: Reports: non-contributory, arthritis, CHF, COPD, coronary artery disease, CVA, diabetes, fibromyalgia, hyperlipidemia, hypertension, myocardial infarction Surgical history: Reports: angioplasty/stent, pacemaker/AICD Psychiatric history: Reports: anxiety, depression - Social History Smoking Status: Former smoker Alcohol use: Reports: none Drug use: Reports: none Physical Exam - General Limitations: no limitations General appearance: alert, in no apparent distress, anxious - Head Head exam: atraumatic, normocephalic, normal inspection - Eye Eye exam: Present: normal appearance - ENT ENT exam: normal exam - Neck Neck exam: Present: normal inspection - Chest Chest inspection: Present: normal inspection - Respiratory Respiratory exam: Present: wheezes (Bilateral and expiratory wheezing with prolonged expiratory phase.), prolonged expiratory phase. Absent: respiratory distress - Cardiovascular Cardiovascular exam: Present: regular rate, normal rhythm, normal heart sounds - Abdominal Exam Abdominal exam: Present: soft, Non-Tender. Absent: tenderness - Extremities Exam Extremities exam: Present: normal inspection - Expanded Lower Extremity Exam Hip/Pelvis exam: Present: normal inspection Upper leg exam: Present: normal inspection Knee exam: Present: normal inspection Lower leg exam: Present: normal inspection Ankle exam: Present: normal inspection Foot/toe exam: Present: normal inspection - Neurological Exam Neurological exam: Present: alert - Psychiatric Psychiatric exam: Present: normal affect, normal mood - Skin Skin exam: Present: warm, dry, intact Course Course Narrative: 61-year-old male history of A. fib, COPD, hypertension who presents to the ER with a chief complaint of chest pain, shortness of breath and defibrillator fired. The patient reports that he felt his defibrillator go off around 2:15 today. He reports dizziness prior to that and that it improved after the defibrillation. He reports that he was contacted by his cardiology office to come to the ER. He reports central chest pain described as heaviness without radiation. Has also had shortness of breath. He is not on oxygen at home but does take inhalers. He has breathing treatments but has not been using them very often. He denies fevers. no sick contacts. No other complaints. - Reevaluation(s) Reevaluation #1: Discussed results of imaging and lab work with the patient. He reports that he has not been taking his anticoagulation medicine and has had hemoptysis for 2 days. We will get a d-dimer as well and ambulate him here. He will likely require admission. Reevaluation #2: Discussed results of imaging with the patient. - Consultations Consultation #1: I discussed this patient with the on-call bottom ironer. Discussed his recent defibrillation firing secondary to V. fib. He reports that he would increase the patient's amiodarone to 400 mg daily and then if he has another episode of V. fib that we can start an amiodarone drip. Vital Signs Temperature 97.1 F L 10/20/16 16:52 Pulse Rate 97 10/20/16 16:52 Respiratory Rate 18 10/20/16 16:52 Blood Pressure 171/121 10/20/16 16:52 O2 Sat by Pulse Oximetry 95 10/20/16 16:52 Temperature 97.9 F 10/21/16 00:00 Pulse Rate 75 10/21/16 00:00 Respiratory Rate 18 10/21/16 00:00 Blood Pressure 164/85 10/21/16 00:00 O2 Sat by Pulse Oximetry 94 L 10/21/16 00:00 Oxygen Delivery Oxygen Delivery Nasal Cannula Chest Pain - MDM Narrative Medical decision making narrative: 61-year-old male presents to the ER with a chief complaint of shortness of breath and his defibrillator fired. His workup here included a troponin of 0.05. His EKG is unchanged from previous. He did have an elevated d-dimer of 1700 which prompted a CTA. He appears to have right middle and lower lobe pneumonias. He has an oxygen requirement here. He was given Solu-Medrol and DuoNeb's. Also received Rocephin and Zithromax for community-acquired pneumonia. Admitted to the hospital for further management. - Lab Data Lab results reviewed: Yes I reviewed the patient's lab results. Result diagrams: 10/20/16 17:21 10/20/16 17:21 Lab Results 10/20/16 10/20/16 10/20/16 Range/Units 17:21 17:21 17:21 WBC 20.3 H (4.3-11.1) K/mcL RBC 3.98 L (4.19-5.50) M/mcL Hgb 11.5 L (12.9-16.9) g/dL Hct 34.2 L (37.5-50.1) % MCV 85.9 (83.0-100.0) fL MCH 28.9 (28.0-33.3) pg MCHC 33.6 (31.6-35.5) g/dL RDW 13.7 (11.5-14.5) % Plt Count 183 (140-400) K/mcL MPV 9.9 (9.4-12.4) fL Immature Gran % 7.5 H (0-4) % Seg Neutrophils % 86.0 % Band Neutrophils % 2.0 (0-4) % Lymphocytes % 2.0 % Monocytes % 8.0 % Eosinophils % 0.0 % Basophils % 0.1 % Myelocytes % 2.0 H (0) % Neutrophils # 16.7 H (1.6-8.9) K/mcL Lymphocytes # 0.8 (0.6-4.6) K/mcL Monocytes # 1.7 H (0.0-1.3) K/mcL Eosinophils # 0.0 (0.0-0.6) K/mcL Basophils # 0.0 (0.0-0.2) K/mcL Toxic Granulation Present A (Not Present) Dohle Bodies Present A (Not Present) Immature Plt Fraction 3.2 (1.1-6.1) % D-Dimer (0-500) ng/mLFEU Sodium 133 L (136-145) mEq/L Potassium 2.9 L (3.5-4.5) mEq/L Chloride 97 L (98-109) mEq/L Carbon Dioxide 24 (19-29) mEq/L BUN 17 (8-26) mg/dL Creatinine 0.93 (0.72-1.25) mg/dL Est GFR ( Amer) > 60 (> 60) Est GFR (Non-Af Amer) > 60 (> 60) BUN/Creatinine Ratio 18 (6-26) Glucose 203 H (70-99) mg/dL Calculated Osmolality 283 (280-300) Calcium 9.2 (8.6-10.8) mg/dL Magnesium 1.4 L (1.6-2.6) mg/dL Troponin I (0-0.03) ng/mL B-Natriuretic Peptide 349 H (0-100) pg/mL 10/20/16 10/20/16 Range/Units 17:21 17:21 WBC (4.3-11.1) K/mcL RBC (4.19-5.50) M/mcL Hgb (12.9-16.9) g/dL Hct (37.5-50.1) % MCV (83.0-100.0) fL MCH (28.0-33.3) pg MCHC (31.6-35.5) g/dL RDW (11.5-14.5) % Plt Count (140-400) K/mcL MPV (9.4-12.4) fL Immature Gran % (0-4) % Seg Neutrophils % % Band Neutrophils % (0-4) % Lymphocytes % % Monocytes % % Eosinophils % % Basophils % % Myelocytes % (0) % Neutrophils # (1.6-8.9) K/mcL Lymphocytes # (0.6-4.6) K/mcL Monocytes # (0.0-1.3) K/mcL Eosinophils # (0.0-0.6) K/mcL Basophils # (0.0-0.2) K/mcL Toxic Granulation (Not Present) Dohle Bodies (Not Present) Immature Plt Fraction (1.1-6.1) % D-Dimer 1705 H (0-500) ng/mLFEU Sodium (136-145) mEq/L Potassium (3.5-4.5) mEq/L Chloride (98-109) mEq/L Carbon Dioxide (19-29) mEq/L BUN (8-26) mg/dL Creatinine (0.72-1.25) mg/dL Est GFR ( Amer) (> 60) Est GFR (Non-Af Amer) (> 60) BUN/Creatinine Ratio (6-26) Glucose (70-99) mg/dL Calculated Osmolality (280-300) Calcium (8.6-10.8) mg/dL Magnesium (1.6-2.6) mg/dL Troponin I 0.05 H* (0-0.03) ng/mL B-Natriuretic Peptide (0-100) pg/mL - Radiology Data Radiology results reviewed: Yes I reviewed the patient's radiology results. Chest X-Ray 10/20/16 16:57 IMPRESSION: 1. Right lower lobe pneumonia. Recommend chest radiograph in 8 weeks to confirm resolution. D/ / Pradeep Chandler MD / Pradeep Chandler MD Interpreting Provider: Pradeep Chandler MD Chest CTA 10/20/16 19:40 IMPRESSION: 1. Right middle and lower lobe pneumonia. Recommend chest radiograph in 8 weeks to confirm resolution. 2. Mediastinal reactive adenopathy. D/ / Pradeep Chandler MD / Pradeep Chandler MD Interpreting Provider: Pradeep Chandler MD - EKG Data EKG attestation: Yes I reviewed and interpreted this EKG. EKG results narrative: EKG shows sinus rhythm with PVCs with a rate of 93 bpm. Normal axis. NC interval 138 QRS duration 194 QTc 514. Right bundle branch block. Nonspecific ST-T wave changes in leads one, 3 likely secondary to bundle branch block. No gross ST elevations or depressions. Changes from previous EKG include PVCs. EKG shows normal: sinus rhythm, axis Rate: normal Rhythm: NSR, PVC's Crump/QRS: normal QTc: prolonged Ectopy: PVC When compared to previous EKG there are: no significant changes Interpretation: nonspecific ST-T wave changes, other (Sinus rhythm with a right frontal branch block) Heart Score - Score History: Moderately Suspicious EKG: Non Specific repolarisation Disturbance Age: 45-65 Risk Factors: Equal/Greater than 3 risk factor or history of atherosclerotic disease Troponin: 1-3x normal limit HEART Score Total: 6
[2016-10-20 17:37] LABS: Basophils % 0.1 %; Hematocrit 34.2 % (37.5-50.1); Hemoglobin 11.5 g/dL (12.9-16.9); Immature Granulocytes % 7.5 % (0-4); Immature Platelets 3.2 % (1.1-6.1); Lymphocytes # 0.8 K/mcL (0.6-4.6); Mean Corpuscular HGB Conc 33.6 g/dL (31.6-35.5); Mean Corpuscular Hemoglobin 28.9 pg (28.0-33.3); Mean Corpuscular Volume 85.9 fL (83.0-100.0); Mean Platelet Volume 9.9 fL (9.4-12.4); Monocytes # 1.7 K/mcL (0.0-1.3); Platelet Count 183 K/mcL (140-400); Red Blood Count 3.98 M/mcL (4.19-5.50); Red Cell Distribution Width 13.7 % (11.5-14.5)
[2016-10-20 17:49] LABS: BUN/Creatinine Ratio 18 (6-26); Blood Urea Nitrogen 17 mg/dL (8-26); Calcium 9.2 mg/dL (8.6-10.8); Carbon Dioxide 24 mEq/L (19-29); Chloride 97 mEq/L (98-109); Glucose 203 mg/dL (70-99); Osmolality,Calculated 283 (280-300); Potassium 2.9 mEq/L (3.5-4.5); Sodium 133 mEq/L (136-145); eGFR For African Americans > 60 (> 60); eGFR For Non-African Americans > 60 (> 60)
[2016-10-20] MEDS ORDERED: Ipratropium/Albuterol Neb 3 ML IH ONE (17:54)
[2016-10-20] MEDS ORDERED: methylPREDNISolone 125 MG/2 ML VIAL IVP ONE (17:54)
[2016-10-20 17:58] LABS: Dohle Bodies Present (Not Present); Toxic Granulation Present (Not Present)
[2016-10-20 17:59] LABS: Neutrophils # 16.7 K/mcL (1.6-8.9)
[2016-10-20] MEDS ORDERED: Azithromycin 500 MG in D5% in Water 250 ML IVPB ONE (19:41)
[2016-10-20 19:53] LABS: Magnesium 1.4 mg/dL (1.6-2.6)
[2016-10-20] MEDS ORDERED: Acetaminophen 325 MG TABLET PO PRN (21:40)
[2016-10-20] MEDS ORDERED: Naloxone 0.4 MG/ML INJ IVP PRN (21:40)
[2016-10-20] MEDS ORDERED: Ondansetron 4 MG/2 ML VIAL IVP PRN (21:40)
[2016-10-20] MEDS ORDERED: clonazePAM 1 MG TABLET PO PRN (21:45)
[2016-10-20] MEDS ORDERED: *HR* OxyCODONE Immed Rel 15 MG TABLET PO PRN (21:45)
[2016-10-20] MEDS ORDERED: Dextrose Gel 15 GM PO PRN ×2 (21:52)
[2016-10-20] MEDS ORDERED: D5% in Water 1,000 ML IV PRN (21:52)
[2016-10-20] MEDS ORDERED: *HR* Dextrose 50 % in Water (Syg) 50 ML SYRINGE IVP PRN (21:52)
[2016-10-20] MEDS ORDERED: Albuterol 2.5 MG/3 ML NEBULIZER IH PRN (21:53)
[2016-10-20] MEDS ORDERED: Insulin LISPRO 300 UNITS/3 ML VIAL SQ SCH (22:00)
[2016-10-20] MEDS ORDERED: Magnesium Sulfate 2 GM in D5% in Water 100 ML IVPB ONE (22:00)
[2016-10-20] MEDS: *HR* HYDROcodone/Acet 5/325 mg TABLET PO PRN (22:21)
--- NOTE | 2016-10-20 22:54 | Internal Med History&Physical ---
<Natalya Sanders - Last Filed: 10/21/16 00:02> Date of Encounter: 10/21/16 Time of Encounter: 22:00 Assessment and Plan (1) Community acquired pneumonia Status: Acute 1 patient has been experiencing cough shortness of breath and subjective fevers past 4-5 days White count is 20.3 chest x-ray and CTA indicative of right lower lobe pneumonia. Continue to monitor CBC 2 we will continue with antibiotics Rocephin Doxycycline 3 we will continue with steroids-to taper 4. Bronchodilators 5 oxygen titrate to maintain SPO2. 90% (2) Defibrillator discharge Status: Acute 1 patient has pacemaker and AICD-she was experiencing shortness of breath and lightheadedness, AICD fired-symptoms improved-patient is on amiodarone she states he has been taking as prescribed. We will continue with amiodarone, 2 patient has had hypomagnesemia as well as hypokalemia replace and maintain K at 4.0 and Mag 2.0 3 continuous cardiac monitoring 4 consult cardiology (3) Elevated troponin Status: Acute 1 patient did have some chest pain after AICD fire. Presently chest pain-free first cardiac troponin was elevated suspect related to AICD fire we will continue to cycle cardiac troponin 2 cardiology has been consulted (4) Essential hypertension Status: Acute 1 presently controlled with continue with home medications: As maintain systolic less than 140 (5) CAD (coronary artery disease) Status: Chronic 1 we will continue with Plavix and statin Qualifiers: Coronary Disease-Associated Artery/Lesion type: [place] artery [place] vs. 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 Continue with oxygen as needed to maintain SPO2 greater than 92% 2 bronchodilators 3 steroids IV to taper Qualifiers: COPD type: emphysema Emphysema type: unspecified Qualified Code(s): J43.9 - Emphysema, unspecified (10) CHF (congestive heart failure) Status: Acute 1 the first 35% we will continue with IV Lasix as well as beta ana 2 monitor intake and output 3 daily weights 4 low sodium diet Qualifiers: Congestive heart failure type: systolic Congestive heart failure chronicity : chronic Qualified Code(s): I50.22 - Chronic systolic (congestive) heart failure (11) DVT prophylaxis Status: Acute 1 [facility] - H&P: HPI Chief complaint: AICD fire Admitted From: Emergency Dept Plans for Post Hospital Care: Home History of present illness: Mr. Jordan is a 61 year old male with a history of CHF COPD coronary artery disease with stent placement CVA diabetes hyperlipidemia hypertension and [place] pacemaker AICD placement anxiety/depression. Patient is experiencing shortness of breath, cough , orthopnea, subjective fever and nausea for the past 4-5 days His cough has been productive, sputum has been clear except for the past 2 days experiencing some hemoptysis. He denies any anticoagulation medicines. This afternoon approximately 2:15 patient was experiencing some shortness of breath as well as lightheadedness when his defibrillator fire. After AICD fire his symptoms improved. He was contacted by his cardiology office and advised to come to the ER. Upon arrival to the ER he complained of central nonradiating chest pain he described as heaviness. EKG was sinus with PVCs. Lab work revealed a elevated white count at 20.3 elevated d-dimer 1705 hypokalemia hypomagnesemia troponin 0.05 CTA chest was obtained which was negative for PE, however did reveal right middle and lower lobe pneumonia. He was given IV steroids as well as Rocephin and Zithromax for community acquired pneumonia. He was admitted for further workup and evaluation. Presently patient denies any chest pain or shortness of breath this time. On auscultation he has faint scattered expiratory wheeze. He does not appear to be in respiratory distress He is sinus rhythm on the monitor At this time he is hemodynamically stable I reviewed this case with who agrees with plan Past Med Surg Social Fam HX - Past Medical History Medical history: non-contributory, arthritis, CHF, COPD, coronary artery disease , CVA, diabetes, fibromyalgia, hyperlipidemia, hypertension, myocardial infarction Psychiatric history: anxiety, depression - Past Surgical History Surgical History: angioplasty/stent, pacemaker/AICD - Social History Smoking Status: Former smoker Smokeless Tobacco Status: Yes Alcohol use: none Drug use: none - Family History Mother Living Status: Father Living Status: Hx Family Cardiac Disorders: Yes Hx Family Respiratory Disorders: Yes Internal Medicine - H&P: Meds Albuterol Sulfate [Proair Hfa] 2 puff IH Q4H PRN 09/19/16 [History] Atorvastatin [Lipitor] 40 mg PO HS 09/19/16 [History] Beclomethasone Diprop 80mcg [QVAR 80 mcg] 1 puff IH BID 09/19/16 [History] ClonazePAM [Klonopin] 1 mg PO TID PRN 09/19/16 [History] Ezetimibe [Zetia] 10 mg PO DAILY 09/19/16 [History] Furosemide [Lasix] 20 mg PO DAILY 09/19/16 [History] Gabapentin 800 mg PO TID 09/19/16 [History] Lamotrigine 100 mg PO BID 09/19/16 [History] Multivitamin,Therapeutic [Therems] 1 tab PO DAILY 09/19/16 [History] Oxycodone HCl [Roxicodone 30 MG Immed Release] 30 mg PO Q4-6H PRN 09/19/16 [ History] Amiodarone [Cordarone] 200 mg PO DAILY #30 tablet 09/22/16 [Rx] Amlodipine [Norvasc] 10 mg PO DAILY #30 tablet 09/22/16 [Rx] Aspirin 81 mg PO DAILY tab.chew 09/22/16 [Rx] Carvedilol [Coreg] 3.125 mg PO BIDWM #30 tablet 09/22/16 [Rx] Clopidogrel [Plavix] 75 mg PO DAILY 10/20/16 [History] Magnesium Oxide [Mag-Ox] 400 mg PO DAILY 10/20/16 [History] Metformin [Glucophage] 250 mg PO QPM 10/20/16 [History] Doxycycline 100 mg PO BID #14 capsule 10/21/16 [Rx] PredniSONE 40 mg PO DAILY #6 tablet 10/21/16 [Rx] Allergies Penicillins Allergy (Verified 09/19/16 13:16) See Comments does not recall reaction All Systems PM: A 10-system review of systems was performed and is negative for pertinent findings except as documented above in the HPI. - Constitutional Constitutional: fatigue, fever(s) - Cardiovascular Cardiovascular ROS IM: dyspnea on exertion, lightheadedness, orthopnea - Respiratory Respiratory: cough, dyspnea on exertion, change in phlegm color - Gastrointestinal Gastrointestinal: no abdominal pain, no diarrhea, no hematemesis, no hematochezia, no melena, no nausea, no vomiting - Musculoskeletal Musculoskeletal ROS IM: no numbness, no tingling - Neurological Neurological ROS: no confusion, no convulsions, no focal weakness, no numbness, no tingling, no tremor(s) - Constitutional Vitals: Temp Pulse Resp BP Pulse Ox 99.1 F 81 18 159/75 94 L 10/20/16 20:46 10/20/16 20:46 10/20/16 20:46 10/20/16 20:46 10/20/16 20:46 General appearance: Present: A&O X 3, answers questions appropriately - Head Head exam: Present: atraumatic, normocephalic - Eye Eye exam: Present: PERRL, conjuntiva pink, sclera anicteric Pupils: Present: PERRL - Respiratory Respiratory exam: Present: wheezes. Absent: accessory muscle use, rales, rhonchi - Cardiovascular Cardiovascular exam: Present: RRR, +S1, +S2. Absent: diastolic murmur, gallop, rubs, systolic murmur - GI/Abdominal GI/Abdominal exam: Present: normal bowel sounds, soft, no peritoneal signs. Absent: distended, tenderness - Extremities Exam Extremities exam: Present: warm, radial pulses palpable and symetrical. Absent : calf tenderness, cyanotic, pedal edema - Neurological Exam Neurological exam: Present: CN II-XII intact, oriented X3, no focal deficits. Absent: pronater drift, facial droop, speech deficit - Skin Skin exam: Present: dry, intact Internal Med - H&P Results - Labs CBC & Chem 7: 10/20/16 17:21 10/20/16 17:21 - EKG Data EKG shows normal: sinus rhythm - EKG Data EKG comments: 10/20/16 22:56 Sinus with PVCs-reviewed EKG with Dr. Quintanilla - Diagnostic Studies Chest x-ray Additional comments: Per radiology read right lower lobe pneumonia. Recommend chest radiograph in 8 weeks to confirm resolution. CT scan - chest Additional comments: CT at bedtime. Per radiology reading right middle and lower lobe pneumonia. Recommend chest radiograph in 8 weeks for resolution. Mediastinal reactive adenopathy <Angélica Quintanilla - Last Filed: 10/21/16 20:11> Date of Encounter: 10/20/16 Internal Medicine - H&P: HPI History of present illness: Mr. Jordan is a 61 year old male All Systems PM: A 10-system review of systems was performed and is negative for pertinent findings except as documented above in the HPI. - Constitutional Vitals: Temp Pulse Resp BP Pulse Ox 97.3 F L 59 18 130/83 98 10/21/16 11:08 10/21/16 11:08 10/21/16 11:08 10/21/16 11:08 10/21/16 11:08 Internal Med - H&P Results - Labs CBC & Chem 7: 10/21/16 05:27 10/21/16 05:27 Labs: Short CBC 10/21/16 Range/Units 05:27 WBC 20.8 H (4.3-11.1) K/mcL Hgb 11.6 L (12.9-16.9) g/dL Hct 34.2 L (37.5-50.1) % Plt Count 192 (140-400) K/mcL Neutrophils # 18.4 H (1.6-8.9) K/mcL BMP 10/21/16 05:27 Sodium 137 Potassium 3.5 Chloride 102 Carbon Dioxide 24 BUN 18 Creatinine 1.08 Glucose 319 H Calcium 9.8 Cardiac Enzymes 10/21/16 Range/Units 05:27 Troponin I 0.02 (0-0.03) ng/mL - Attending Attestation I examined this patient and my medical decision-making was reviewed with the UNDERGROUND MINER/ Advanced Practice Nurse. I agree with the documented findings, disposition and treatment plan as described except to the extent set forth below. 61 Y/M with shortness of breath. His ICD fired prior to his presentation to the hospital. Imaging showed RLL pneumonia. D-dimer is elevated but CTA chest is negative for PE. Will treat for community acquired pneumonia, with ceftriaxone and doxycycline (pt has prolonged QTc of 514 ms, hence will avoid levofloxacin or azithromycin). Pt has hypomagnesemia - will replenish. At my evaluation, pt feels better. Lungs clear to auscultation.
[2016-10-20] MEDS: methylPREDNISolone 125 MG/2 ML VIAL IVP SCH (23:57)
[2016-10-20] MEDS: *HR* Morphine 2 MG/ML SYRINGE IVP PRN (23:57)
[2016-10-20] MEDS: Ipratropium/Albuterol Neb 3 ML IH SCH (23:59)
[2016-10-21] MEDS: Ipratropium/Albuterol Neb 3 ML IH SCH ×2 (03:57→11:08)
[2016-10-21] MEDS: *HR* Morphine 2 MG/ML SYRINGE IVP PRN (04:39)
[2016-10-21 05:45] LABS: Lymphocytes # 0.9 K/mcL (0.6-4.6); Lymphocytes % 4.4 %
[2016-10-21] MEDS ORDERED: Doxycycline 100 MG in 0.9 % Sodium Chloride Mini Bag 100 ML IVPB SCH (06:00)
[2016-10-21 06:12] LABS: Basophils % 0.1 %; Hematocrit 34.2 % (37.5-50.1); Hemoglobin 11.6 g/dL (12.9-16.9); Immature Granulocytes % 1.2 % (0-4); Immature Platelets 3.8 % (1.1-6.1); Mean Corpuscular HGB Conc 33.9 g/dL (31.6-35.5); Mean Corpuscular Hemoglobin 29.7 pg (28.0-33.3); Mean Corpuscular Volume 87.5 fL (83.0-100.0); Mean Platelet Volume 10.4 fL (9.4-12.4); Monocytes # 1.3 K/mcL (0.0-1.3); Monocytes % 6.1 %; Neutrophils # 18.4 K/mcL (1.6-8.9); Platelet Count 192 K/mcL (140-400); Red Blood Count 3.91 M/mcL (4.19-5.50); Red Cell Distribution Width 14.1 % (11.5-14.5); Segmented Neutrophils % 88.2 %
[2016-10-21 06:19] LABS: BUN/Creatinine Ratio 17 (6-26); Blood Urea Nitrogen 18 mg/dL (8-26); Calcium 9.8 mg/dL (8.6-10.8); Carbon Dioxide 24 mEq/L (19-29); Chloride 102 mEq/L (98-109); Chol/HDL Ratio 3.6 (0-4.9); Cholesterol 128 mg/dL (< 200); Glucose 319 mg/dL (70-99); HDL Cholesterol 36 mg/dL (40-59); LDL Cholesterol,Calculated 71 mg/dL (0-99); Osmolality,Calculated 298 (280-300); Potassium 3.5 mEq/L (3.5-4.5); Sodium 137 mEq/L (136-145); Triglycerides 103 mg/dL (< 150); eGFR For African Americans > 60 (> 60); eGFR For Non-African Americans > 60 (> 60)
[2016-10-21] MEDS ORDERED: *HR* Enoxaparin 40 MG/0.4 ML SYRINGE SQ SCH (07:00)
[2016-10-21] MEDS: Insulin LISPRO 300 UNITS/3 ML VIAL SQ SCH ×2 (08:24→12:26)
[2016-10-21] MEDS: methylPREDNISolone 125 MG/2 ML VIAL IVP SCH (08:25)
[2016-10-21] MEDS ORDERED: lamoTRIgine 100 MG TABLET PO SCH ×2 (09:00→22:32)
[2016-10-21] MEDS ORDERED: Magnesium Oxide 400 MG TABLET PO SCH (09:00)
[2016-10-21] MEDS ORDERED: amLODIPine 5 MG TABLET PO SCH (09:00)
[2016-10-21] MEDS ORDERED: *HR* Amiodarone 200 MG TABLET PO SCH ×2 (09:00→22:32)
[2016-10-21] MEDS ORDERED: Multivit/Ca/Min/Fe/FA 1 TAB TABLET PO SCH (09:00)
[2016-10-21] MEDS ORDERED: Gabapentin 400 MG CAPSULE PO SCH (09:00)
[2016-10-21] MEDS ORDERED: Furosemide 20 MG TABLET PO SCH (09:00)
[2016-10-21] MEDS ORDERED: Aspirin 81 MG TAB.CHEW PO SCH (09:00)
[2016-10-21 09:43] LABS: Magnesium 2.4 mg/dL (1.6-2.6)
[2016-10-21] MEDS ORDERED: Beclomethasone 80mcg MDI IH SCH (10:00)
--- NOTE | 2016-10-21 10:20 | Discharge Summary ---
Addendum entered and electronically signed by Mj Allen DO 10/21/16 11:20: Defibrillator discharge was a result of sustained Ventricular tachycardia. Will increase amiodarone to 400mg daily and patient will follow up with cardiology as scheduled next week. Original Note: <Mj Allen - Last Filed: 10/21/16 10:28> Date of Encounter: 10/21/16 Time of Encounter: 10:18 - Discharge Diagnosis (1) Community acquired pneumonia Priority: Primary Status: Acute (2) COPD (chronic obstructive pulmonary disease) Priority: Primary Status: Acute Qualifiers: COPD type: emphysema Emphysema type: unspecified Qualified Code(s): J43.9 - Emphysema, unspecified (3) Defibrillator discharge Priority: Primary Status: Acute (4) CHF (congestive heart failure) Priority: Secondary Status: Chronic Qualifiers: Congestive heart failure type: systolic Congestive heart failure chronicity : chronic Qualified Code(s): I50.22 - Chronic systolic (congestive) heart failure (5) Diabetes mellitus Priority: Secondary Status: Chronic Qualifiers: Diabetes mellitus type: type 2 Diabetes mellitus complication status: with hyperglycemia 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 insulin 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: without terminal supervisor use Qualified Code(s): E11.65 - Type 2 diabetes mellitus with hyperglycemia - Discharge Medications Prescriptions: Doxycycline 100 mg PO BID #14 capsule PredniSONE 40 mg PO DAILY #6 tablet Home Medications: Albuterol Sulfate [Proair Hfa] 2 puff IH Q4H PRN 09/19/16 [History] Atorvastatin [Lipitor] 40 mg PO HS 09/19/16 [History] Beclomethasone Diprop 80mcg [QVAR 80 mcg] 1 puff IH BID 09/19/16 [History] ClonazePAM [Klonopin] 1 mg PO TID PRN 09/19/16 [History] Ezetimibe [Zetia] 10 mg PO DAILY 09/19/16 [History] Furosemide [Lasix] 20 mg PO DAILY 09/19/16 [History] Gabapentin 800 mg PO TID 09/19/16 [History] Lamotrigine 100 mg PO BID 09/19/16 [History] Multivitamin,Therapeutic [Therems] 1 tab PO DAILY 09/19/16 [History] Oxycodone HCl [Roxicodone 30 MG Immed Release] 30 mg PO Q4-6H PRN 09/19/16 [ History] Amiodarone [Cordarone] 200 mg PO DAILY #30 tablet 09/22/16 [Rx] Amlodipine [Norvasc] 10 mg PO DAILY #30 tablet 09/22/16 [Rx] Aspirin 81 mg PO DAILY tab.chew 09/22/16 [Rx] Carvedilol [Coreg] 3.125 mg PO BIDWM #30 tablet 09/22/16 [Rx] Clopidogrel [Plavix] 75 mg PO DAILY 10/20/16 [History] Magnesium Oxide [Mag-Ox] 400 mg PO DAILY 10/20/16 [History] Metformin [Glucophage] 250 mg PO QPM 10/20/16 [History] Doxycycline 100 mg PO BID #14 capsule 10/21/16 [Rx] PredniSONE 40 mg PO DAILY #6 tablet 10/21/16 [Rx] Allergies/Adverse Reactions: Allergies Penicillins Allergy (Verified 09/19/16 13:16) See Comments does not recall reaction Date of admission: 10/21/16 03:12 Primary care physician: Lavern Iverson CNP Discharging clinician: Mj Allen Anticipated date of discharge: 10/21/16 - Patient Status Disposition: Home, Self-Care Condition: Good Functional capacity at discharge: independent ambulation Overall status at discharge: patient is progressing back to baseline - Discharge Instructions Instructions: Heart Failure (DC), Atrial Fibrillation (DC), Diabetes Mellitus Type 2 in Adults (DC), Chronic Obstructive Pulmonary Disease (DC), Pneumonia (DC ) Follow Up With: Lavern Iverson CNP [Primary Care Provider] - Additional Instructions: Please follow up with your primary care physician in one to 2 weeks. 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 Please take your antibiotic and steroid as directed. Naty return for any new or worsening symptoms. - Diet and Activity Activity: increase activity as tolerated Diet: advance to your usual diet Interval History: Patient seen and examined at bedside. Patient states he feels better today. Patient states that he is breathing much better, he has a mild dry cough is improved, he denies wheezing. He denies any chest pain or shortness of breath, he has not had defibrillator discharge since admission. Hospital course: Mr. Jordan is a 61 year old male with history of COPD, CHF with ICD in place presented with generalized malaise, cough, shortness of breath and defibrillator discharge. He states he is not felt well for several months, over the last several days he has had generalized malaise and some shortness of breath and wheezing. Yesterday he states his defibrillator has fired twice, he states he sent an electronic report on these firings prior hospital. Patient states that he feels much better prior to the hospital and states that he needs to go for his grandchildren's birthday tomorrow. Patient is stable at time of discharge. Patient has multiple questions about the amount of medications he is taking and what he needs to be taking on a long-term basis. Human history of strokes in this patient he appears to have some difficulty managing his medications. Patient may benefit from a home health aide to assist with medications as an outpatient. - Time Spent with Patient Total time spent providing and/or coordinating discharge services: - Constitutional Vitals: Temp Pulse Resp BP Pulse Ox 97.4 F L 65 12 145/85 97 10/21/16 07:54 10/21/16 07:54 10/21/16 07:54 10/21/16 07:54 10/21/16 07:54 General appearance: Present: A&O X 3, no acute distress, answers questions appropriately - Respiratory Respiratory exam: Present: decreased breath sounds. Absent: rales, rhonchi, wheezes - Cardiovascular Cardiovascular exam: Present: irregular rhythm. Absent: gallop, rubs, systolic murmur, tachycardia - GI/Abdominal GI/Abdominal exam: Present: normal bowel sounds, soft. Absent: distended, tenderness - Extremities Exam Extremities exam: Absent: pedal edema - Neurological Exam Neurological exam: Present: alert, CN II-XII intact, oriented X3, no focal deficits <Alphonso Fernández - Last Filed: 10/21/16 15:10> Date of Encounter: 10/21/16 - Discharge Diagnosis (1) Ventricular tachycardia Priority: Primary Status: Resolved (2) Pneumonia Priority: Primary Status: Acute Qualifiers: Pneumonia type: due to unspecified organism Laterality: right Lung location: lower lobe of lung Qualified Code(s): J18.1 - Lobar pneumonia, unspecified organism (3) COPD (chronic obstructive pulmonary disease) Priority: Secondary Status: Acute Qualifiers: COPD type: emphysema Emphysema type: panlobular Qualified Code(s): J43.1 - Panlobular emphysema (4) Defibrillator discharge Status: Acute (5) CHF (congestive heart failure) Status: Chronic Qualifiers: Congestive heart failure type: systolic Congestive heart failure chronicity : chronic Qualified Code(s): I50.22 - Chronic systolic (congestive) heart failure (6) Diabetes mellitus Status: Chronic Qualifiers: Diabetes mellitus type: type 2 Diabetes mellitus complication status: with hyperglycemia Diabetes mellitus detention insulin use: without detention use Qualified Code(s): E11.65 - Type 2 diabetes mellitus with hyperglycemia (7) Obesity (BMI 30-39.9) Status: Chronic Procedures/tests Complete & Pending: Procedures Performed prior 72 hours Category Date Time Status ECG 12 lead ECG [ECG] Routine Y 10/20/16 17:55 Completed Date of admission: 10/21/16 03:12 Primary care physician: Lavern Iverson CNP Hospital course: Mr. Jordan is a 61 year old male - Time Spent with Patient Total time spent providing and/or coordinating discharge services: 28min - Constitutional Vitals: Temp Pulse Resp BP Pulse Ox 97.3 F L 59 18 130/83 98 10/21/16 11:08 10/21/16 11:08 10/21/16 11:08 10/21/16 11:08 10/21/16 11:08 - Head Head exam: Present: atraumatic, normocephalic - Eye Eye exam: Present: PERRL, conjuntiva pink, sclera anicteric Pupils: Present: PERRL - Neck Neck exam general surgery: Present: supple, trachea midline. Absent: lymphadenopathy - Respiratory Respiratory exam: Present: CTAB. Absent: accessory muscle use, rales, rhonchi, wheezes - Cardiovascular Cardiovascular exam: Present: RRR, +S1, +S2. Absent: diastolic murmur, gallop, rubs, systolic murmur - GI/Abdominal GI/Abdominal exam: Present: normal bowel sounds, soft, no peritoneal signs. Absent: distended, tenderness - Extremities Exam Extremities exam: Present: warm, radial pulses palpable and symetrical. Absent : calf tenderness, cyanotic, pedal edema - Neurological Exam Neurological exam: Present: CN II-XII intact, oriented X3, no focal deficits. Absent: pronater drift, facial droop, speech deficit - Skin Skin exam: Present: dry, intact - Attending Attestation I examined this patient and my medical decision-making was reviewed with the Resident Physician on 10/21/16. I agree with the documented findings, disposition and treatment plan as described except to the extent set forth below. Mr. Jordan is feeling better today. He feels ready to go home. He is confused about his medications. Amiodarone increased due to AICD firing for VT. His breathing is doing better as well. Exam Alert. Comfortable Heart reg No wheeze Plan D/C today. Originally anticipated that he would require a 2 midnight admission due to pneumonia, hypoxemia and AICD firing. It appears he is off oxygen and feeling better so will discharge home today and follow up with Dr. Velasquez next week as scheduled.
[2016-10-21] MEDS ORDERED: predniSONE 20 MG TABLET PO SCH (10:30)
[2016-10-21] MEDS ORDERED: *HR* OxyCODONE Immed Rel 15 MG TABLET PO PRN (10:48)
[2016-10-21 11:33] VITALS: BP 130/83
[2016-10-21] MEDS: *HR* HYDROcodone/Acet 5/325 mg TABLET PO PRN (12:11)
--- NOTE | 2016-10-21 17:12 | Electrocardiograph Report ---
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
--- NOTE | 2016-10-21 17:14 | Electrocardiograph Report ---
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
[2016-10-22] MEDS ORDERED: *HR* Amiodarone 200 MG TABLET PO SCH (09:00)
--- NOTE | 2016-10-24 06:48 | Electrocardiograph Report ---
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
== END 2016-10-21 13:11 | disposition home or self-care (01) | DRG 201 ==
LOC: 2NENU 16:48 → EMEROO 16:48 → 2NENU 20:30
PROVIDERS: ADMIT Internal Medicine; ATTEND Internal Medicine